=== PATIENT | male | born 1970 | race Caucasian/White ===

== ENCOUNTER 2016-11-12 09:17 | Day surgery (SDC) | payer OTHER ==
[2016-11-11 09:30] VITALS: BMI 27.1
[~2016-11-12 09:17] MED LIST: LACTATED RINGERS 1,000 ML IV SCH
[2016-11-12] MEDS ORDERED: LACTATED RINGERS 1,000 ML IV ONE (09:29)
[2016-11-12] MEDS ORDERED: LIDOCAINE 1% 20 ML VIAL (10MG/ML) FOR IV START INTRADERMA ONE (09:29)
[2016-11-12 09:35] VITALS: RESP 18; TEMP 98
[2016-11-12] MEDS ORDERED: fentaNYL (PF) 50 MCG/ML 2 ML AMP ONE (10:28)
[2016-11-12] MEDS ORDERED: MIDAZOLAM 2 MG/2 ML VIAL ONE (10:28)
[2016-11-12] MEDS ORDERED: BUPIVACAINE (PF) 0.5% 30 ML VIAL ONE (10:28)
[2016-11-12] MEDS ORDERED: TRIAMCINOLONE ACETONIDE 40 MG/ML 1 ML VIAL ONE (10:28)
--- NOTE | 2016-11-12 10:50 | P.PCN ---
Date of Procedure: 11/12/16 Procedure(s) Performed: PREOPERATIVE DIAGNOSIS : 1- Lumbar spondylosis with Facet Arthropathy without myelopathy . 2- Lumber degenerative disc disease POSTOPERATIVE DIAGNOSIS: 1- Lumbar spondylosis with Facet Arthropathy without myelopathy . 2- Lumber degenerative disc disease PROCEDURE: Diagnostic bilateral L3 -4 , L4 -5 , and L5-S1 medial branch block under fluoroscopy ANESTHESIA: Local with 1% lidocaine; IV sedation with Versed 3 mg and Fentanyl 100 mcg. EBL: Minimal COMPLICATION: None. IV FLUIDS: 100 mL of normal saline. PROCEDURE INDICATION: Chronic low back pain secondary to Facet arthropathy unresponsive to conservative treatment. PROCEDURE DESCRIPTION: the patient was seen and identified in the preop holding area , risks and benefits and possible complications of the procedure and alternative were discussed with the patient, and the patient agreed to proceed with the procedure and signed the consent IV was started and vital signs monitored during the procedure and fluoroscopy was used to maximize the benefit and accuracy of the needle placement, and sedation was given to decrease patient anxiety, patient was taken to the procedure room and placed in prone position vital signs monitored in the back prepped with chlorhexidine X3 then under strict sterile technique using a right oblique fluoroscopy ,the junction of the transverse process and the superior articulating process of the right L3- 4 , L4- 5, and L5-S1 vertebra which corresponding to the fluoroscopy image of the eye of the Byron dog on the block side for the medial branches and subsequently , after local infiltration of skin and subcu tissuies with lidocaine 1% one mL at each level ,then 22- gauge Quincke-type needles , 3 needle was used , each one of them placed at the junction of the base of the transverse process and the superior articular process at the appropriate level, and the needle was advanced until the periosteum contacted, needle placement confirmed with AP oblique and lateral view and after appropriate needle placement confirmed, and after negative aspiration for heme and CSF and there was no paresthesia 1-1/2 mL of Marcaine 0.5% mixed with 40 mg Kenalog , then half mL injected at each level after negative aspiration the needle subsequently removed and the same procedure repeated for the left side at left side at L3-4, L4- 5 and L5-S1 levels. At the end of the procedure and the needles removed and a bandage applied after the skin was cleaned the cleaning solution patient taken to recovery room in stable condition and monitors in the recovery room for 20-30 minutes and discharged home in stable condition after discharge criteria met and patient will follow up with the pain clinic in 2-4 weeks
[2016-11-12] MEDS ORDERED: IV FLUID CONTINUATION 1,000 ML IV ONE (10:57)
--- NOTE | 2016-11-12 11:03 | FL ---
EXAMINATION TYPE: FL guided pain mgmt statistic DATE OF EXAM: 11/12/2016 10:53 AM COMPARISON: NONE HISTORY: Back pain Fluoroscopy support supplied to the referring clinician. See dictated report from anesthesia, 8 seco nds fluoroscopy time, four intraoperative C-arm images
[2016-11-12 11:14] VITALS: BP 115/70; PULSE 56
== END 2016-11-12 11:41 | disposition home or self-care (01) ==
LOC: ORPAIN 09:17
PROVIDERS: ATTEND Specialist
DX: G89.29 Other chronic pain (principal); M51.36 Other intervertebral disc degeneration, lumbar region; M47.816 Spondylosis without myelopathy or radiculopathy, lumbar region; M46.96 Unspecified inflammatory spondylopathy, lumbar region; M54.5 Low back pain; Z91.013 Allergy to seafood
CPT/HCPCS: 64493; 64494; 64495; J2250; J3301; J3010

== ENCOUNTER 2016-12-30 08:04 | Day surgery (SDC) | payer OTHER ==
[2016-12-28 14:04] VITALS: BMI 27.8
[2016-12-30 08:18] VITALS: RESP 16; TEMP 97.8
[2016-12-30] MEDS ORDERED: LACTATED RINGERS 1,000 ML IV ONE (08:22)
[2016-12-30] MEDS ORDERED: LACTATED RINGERS 1,000 ML IV SCH (09:00)
[2016-12-30] MEDS ORDERED: BUPIVACAINE (PF) 0.5% 30 ML VIAL ONE (09:07)
[2016-12-30] MEDS ORDERED: TRIAMCINOLONE ACETONIDE 40 MG/ML 1 ML VIAL ONE (09:07)
[2016-12-30] MEDS ORDERED: MIDAZOLAM 2 MG/2 ML VIAL ONE (09:07)
[2016-12-30] MEDS ORDERED: fentaNYL (PF) 50 MCG/ML 2 ML AMP ONE (09:07)
--- NOTE | 2016-12-30 09:44 | P.PCN ---
Date of Procedure: 12/30/16 Surgeon: Michael Gutiérrez Pathology: none sent Condition: stable Disposition: PACU Description of Procedure: PREOPERATIVE DIAGNOSIS: L3-L4, L4-L5, and L5-S1 spondylosis without myelopathy and facet arthropathy. POSTOPERATIVE DIAGNOSIS: L3-L4, L4-L5, and L5-S1 spondylosis without myelopathy and facet arthropathy. PROCEDURE DESCRIPTION: Patient presents for L3, L4 and L5 diagnostic medial branch blocks under fluoroscopic guidance. The procedure is performed using fluoroscopic guidance during needle placement to assure proper position and maximize safety. ANESTHESIA: Local with 1% lidocaine; conscious sedation EBL: Minimal PROCEDURE INDICATION: Patient with lumbar facet arthropathy signs and symptoms, here for diagnostic medial branch block. Pt does not take any blood thinning medications. > 50% relief from first procedure x 1 week. PROCEDURE DESCRIPTION: The patient was seen and identified in the preoperative area. Risks, benefits, complications, and alternatives were discussed with the patient (including but not limited to incomplete pain relief, bleeding, infection, nerve damage, and allergies to medications), the patient agreed to proceed with the procedure and signed the consent after all questions were answered. Patient was taken to the OR and time out was completed to verify proper patient, position, laterality of pain, and allergies. Pt was placed in the prone position and a pillow was placed under the abdomen to reduce lumbar lordosis. The lumbosacral area was prepped and draped in the usual sterile fashion. Using oblique fluoroscopy, the eye of the "Byron dog" of right L4 vertebral body, which corresponds to the path of the medial branch originating from the level above, which is L3 in this case, was identified. Subsequently, a 22-gauge 3.5-inch spinal needle was inserted under fluoroscopic guidance toward the eye of the "Byron dog" of the right L4 vertebral body, corresponding to the junction of the superior articular process and the transverse process of the pedicle of the same level. After needle tip confirmation on lateral view and after negative aspiration for CSF and blood and without paresthesias, 1 mL of a 6 ml solution of 0.5% preservative-free bupivacaine and 40 mg Kenalog was injected. Subsequently the needle was withdrawn intact and the same procedure was repeated for the right L4, right L5, left L3, left L4, and left L5 medial branches which together with right L3 medial branch correspond to the sensory innervation of the bilateral L3-L4, L4-L5, and L5-S1 facet joints. Needle was withdrawn intact after each injection. At the end of the procedure, the skin was cleansed and bandages were applied. COMPLICATIONS: None. DISPOSITION/PLAN: The patient taken to the recovery area after the procedure in a stable condition for observation. Patient was reexamined prior to discharge and there were no issues. Patient was discharged home, accompanied by an adult, after meeting discharged criteria. Discharge instructions were give to the patient by the staff. Patient was specifically instructed not to drive today and to rest for the rest of the day. If the patient has relief from this procedure, he will follow up for lumbar RFA. I did give one prescription for MSContin 30 mg #60 with no refills. and Neurontin 400 mg #90 with two refills.
--- NOTE | 2016-12-30 10:01 | FL ---
Fluoroscopy HISTORY: Pain 10 seconds fluoroscopy time supplied to the referring clinician. 3 intraoperative C-arm images docum ent the procedure. See dictated report from anesthesia.
[2016-12-30 10:04] VITALS: BP 127/84; PULSE 53
[2016-12-30] MEDS ORDERED: IV FLUID CONTINUATION 1,000 ML IV ONE (10:05)
== END 2016-12-30 10:13 | disposition home or self-care (01) ==
LOC: ORPAIN 08:04
PROVIDERS: ATTEND Anesthesiology
DX: G89.29 Other chronic pain (principal); M47.817 Spondylosis without myelopathy or radiculopathy, lumbosacral region; M46.96 Unspecified inflammatory spondylopathy, lumbar region; Z91.013 Allergy to seafood; Z79.891 Long term (current) use of opiate analgesic; Z79.1 Long term (current) use of non-steroidal anti-inflammatories (NSAID); Z79.899 Other long term (current) drug therapy
CPT/HCPCS: 99152; 64493; 64494; 64495; J2250; J3301; J3010

== ENCOUNTER 2017-02-09 06:52 | Day surgery (SDC) | payer OTHER ==
[2017-02-09] MEDS ORDERED: LACTATED RINGERS 1,000 ML IV SCH (07:00)
[2017-02-09 08:04] VITALS: TEMP 98.4
[2017-02-09] MEDS ORDERED: LIDOCAINE 1% 20 ML VIAL (10MG/ML) FOR IV START SQ ONE (08:04)
[2017-02-09] MEDS ORDERED: LACTATED RINGERS 1,000 ML IV ONE (08:12)
[2017-02-09] MEDS ORDERED: BUPIVACAINE (PF) 0.5% 30 ML VIAL ONE (08:18)
[2017-02-09] MEDS ORDERED: TRIAMCINOLONE ACETONIDE 40 MG/ML 1 ML VIAL ONE (08:18)
[2017-02-09] MEDS ORDERED: fentaNYL (PF) 50 MCG/ML 2 ML AMP ONE (08:18)
[2017-02-09] MEDS ORDERED: MIDAZOLAM 2 MG/2 ML VIAL ONE (08:18)
[2017-02-09] MEDS ORDERED: IV FLUID CONTINUATION 775 ML IV ONE (08:51)
--- NOTE | 2017-02-09 08:52 | FL ---
EXAMINATION TYPE: FL guided pain mgmt statistic DATE OF EXAM: 02/09/2017 8:42 AM HISTORY: Flouroscopy time 5 seconds of fluoroscopy provided. IMPRESSION: 1. Fluoroscopy time.
[2017-02-09 09:02] VITALS: RESP 18
[2017-02-09 09:11] VITALS: BP 1117/70; PULSE 69
--- NOTE | 2017-02-09 11:05 | P.PCN ---
Date of Procedure: 02/09/17 Procedure(s) Performed: PREOPERATIVE DIAGNOSIS: 1-Lumbar Spondylosis with Facet Arthropathy without myelopathy. 2- Lumber degenerative disc disease POSTOPERATIVE DIAGNOSIS: 1- Lumbar Spondylosis with Facet Arthropathy without myelopathy. 2- Lumber degenerative disc disease PROCEDURES : Left Radiofrequency thermocoagulation, L3-L4, L4-L5, and L5-S1 medial branch, with fluoroscopic guidance ANESTHESIA: IV sedation with versed 2 mg and fentaneyl 100 mcg and local infiltration with lidocaine 1% 6 ml EBL: Minimal PROCEDURE INDICATION: The patient with low back pain secondary to lumbar facet arthropathy who had more than 50% relief of her pain with previous diagnostic lumbar medial branch block with bupivacaine. PROCEDURE DESCRIPTION / TECHNIQUE: The patient was seen and identified in the preoperative area. Risks, benefits, complications, including but not limited to risk of infection ,bleeding , allergic reactions to the medications and no complete pain releife , and alternatives were discussed with the patient, the patient agreed to proceed with the procedure and signed the consent. IV was started. Vital signs remained stable throughout the procedure. Patient was taken to the OR and time out was completed. The patient was placed in the prone position on the procedure table. The lumber area was prepped and draped in the usual sterile fashion. . Vital signs were closely monitored during the procedure .IV sedation was used during the procedure to decrease patients anxiety. Using AP and then oblique fluoroscopy, the ``eye of the Byron dog corresponding to the connection between the superior and transverse articular processes of left L3, L4, and L5 were identified, marked, and localized with 1% lidocaine. Subsequently, a [id number] radiofrequency cannula with a 10-mm active tip was advanced guided by fluoroscopy to each of the ``eyes of the Byron dog at left L3, L4, and L5. Each site then underwent sensory testing at 50 Hz and 0 to 1 volt and motor testing at 2.5 Hz and 0 to 3 volt with local stimulation, but no radicular symptoms down the legs. Thereafter the left L3-4, L4-5, and L5-S1 sites underwent radiofrequency thermocoagulation at 80 degrees celsius for 90 seconds after injecting 0.5 ml of PF lidocaine 1%. then After the thermocoagulation done , 1 ml of the block solution containing Kenalog 40 mg and 3 ml of marain 0.5% was injected at the left L3-4 , L4-5 , and L5-S1, levels after negative aspiration of CSF and blood and with no paresthesias. Cannulas were retracted while injecting lidocaine 1% until the needle is out. At the end of the procedure, the skin was cleansed and bandages were applied. COMPLICATIONS: No acute complications. DISPOSITION / PLANS: The patient was placed in a supine position and transferred to the recovery area in a stable condition for observation and was discharged from the recovery room after meeting discharge criteria. Home discharge instructions given to the patient by the staff. The patient was reexamined prior to discharge. The patient will schedule a follow up in the clinic in 2-4 weeks.
== END 2017-02-09 09:30 | disposition home or self-care (01) ==
LOC: ORPAIN 06:52
PROVIDERS: ATTEND Specialist
DX: M46.96 Unspecified inflammatory spondylopathy, lumbar region (principal); M51.36 Other intervertebral disc degeneration, lumbar region; M47.816 Spondylosis without myelopathy or radiculopathy, lumbar region; Z88.8 Allergy status to other drugs, medicaments and biological substances
CPT/HCPCS: 64635; 64636 ×2; 99152; J2250; J3301; J3010

== ENCOUNTER 2017-03-22 06:38 | Day surgery (SDC) | payer OTHER ==
[2017-03-21 09:23] VITALS: BMI 61.2
[2017-03-22 07:09] VITALS: RESP 16; TEMP 98.1
[2017-03-22] MEDS ORDERED: LACTATED RINGERS 1,000 ML IV ONE (07:12)
[2017-03-22] MEDS ORDERED: LIDOCAINE 1% 20 ML VIAL (10MG/ML) FOR IV START INTRADERMA ONE (07:13)
[2017-03-22] MEDS ORDERED: LACTATED RINGERS 1,000 ML IV SCH (07:30)
[2017-03-22] MEDS ORDERED: MIDAZOLAM 2 MG/2 ML VIAL ONE (07:43)
[2017-03-22] MEDS ORDERED: TRIAMCINOLONE ACETONIDE 40 MG/ML 1 ML VIAL ONE (07:43)
[2017-03-22] MEDS ORDERED: fentaNYL (PF) 50 MCG/ML 2 ML AMP ONE (07:43)
[2017-03-22] MEDS ORDERED: IV FLUID CONTINUATION 1,000 ML IV ONE (08:06)
[2017-03-22 08:33] VITALS: BP 113/79; PULSE 62
--- NOTE | 2017-03-22 08:35 | FL ---
EXAMINATION TYPE: FL guided pain mgmt statistic DATE OF EXAM: 03/22/2017 8:08 AM HISTORY: Flouroscopy time 19 seconds of fluoroscopy provided. IMPRESSION: 1. Fluoroscopy time.
--- NOTE | 2017-03-22 08:51 | P.PCN ---
Date of Procedure: 03/22/17 Preoperative Diagnosis: Postoperative Diagnosis: Procedure(s) Performed: Implants: Surgeon: Michael Gutiérrez Pathology: none sent Condition: stable Disposition: PACU Indications for Procedure: Operative Findings: Description of Procedure: PREOPERATIVE DIAGNOSIS: Lumbar spondylosis without myelopathy and facet arthropathy POSTOPERATIVE DIAGNOSIS: Lumbar spondylosis without myelopathy and facet arthropathy PROCEDURES: Right Radiofrequency thermocoagulation, L3, L4, and L5 medial branch , with fluoroscopic guidance. ANESTHESIA: 1% lidocaine plain; Conscious sedation with versed/fentanyl EBL: Minimal PROCEDURE INDICATION: The patient with low back pain secondary to lumbar arthropathy who had more than 50% relief of pain with previous diagnostic lumbar medial branch block with bupivacaine. Patient presents for RFA today; no use of blood thinners. Patient has already had good relief with left lumbar RFA. PROCEDURE DESCRIPTION / TECHNIQUE: The patient was seen and identified in the preoperative area. Risks, benefits, complications, and alternatives were discussed with the patient (including but not limited to incomplete pain relief , bleeding, infection, nerve damage, and allergies to medications), the patient agreed to proceed with the procedure and signed the consent after all questions were answered. Patient was taken to the OR and time out was completed to verify proper patient , position, laterality of pain, and allergies. Pt was placed in the prone position. IV was started. Vital signs remained stable throughout the procedure. A pillow was placed under the patients chest to decrease lordosis. The lumbosacral area was prepped and draped in the usual sterile fashion. Vital signs were closely monitored during the procedure. Conscious sedation was used during the procedure to decrease patients anxiety. Using AP and then oblique fluoroscopy, the eye of the Byron dog corresponding to the connection between the superior and transverse articular processes of right L4, L5 and top of the sacrum were identified, marked, and localized with 1% lidocaine. Subsequently, a 18 gauge, 100-mm radiofrequency cannula with a 10-mm active tip was advanced guided by fluoroscopy to each of the eyes of the Byron dog at right L3, L4, and L5 medial branches. Each site then underwent sensory testing at 50 Hz and 0 to 1 volt and motor testing at 2 Hz and 0 to 3 volt with local stimulation, but no radicular symptoms down the legs. Thereafter the right L3, L4, and L5 medial branch sites underwent radiofrequency thermocoagulation at 80 degrees Celsius for 90 seconds after injecting 0.5 ml of PF lidocaine 1%. After thermocoagulation, 1 ml of the block solution containing Kenalog 40 mg and 2 mL of preservative-free normal saline was injected at the right L3, L4, and L5 medial branch levels after negative aspiration of CSF and blood and with no paresthesias. Cannulas were retracted while injecting lidocaine 1% until the needles were removed. At the end of the procedure, the skin was cleansed and bandages were applied. COMPLICATIONS: No acute complications. DISPOSITION / PLANS: The patient was placed in a supine position and transferred to the recovery area in a stable condition for observation and was discharged from the recovery room after meeting discharge criteria. Home discharge instructions given to the patient by the staff. The patient was reexamined prior to discharge. The patient will schedule a follow up in the clinic in 2-4 weeks as both RFAs of lumbar spine have been completed.
== END 2017-03-22 08:45 | disposition home or self-care (01) ==
LOC: ORPAIN 06:38
PROVIDERS: ATTEND Anesthesiology
DX: G89.29 Other chronic pain (principal); M54.5 Low back pain; M47.816 Spondylosis without myelopathy or radiculopathy, lumbar region; M46.96 Unspecified inflammatory spondylopathy, lumbar region; Z79.1 Long term (current) use of non-steroidal anti-inflammatories (NSAID); Z79.891 Long term (current) use of opiate analgesic; Z79.899 Other long term (current) drug therapy; Z91.013 Allergy to seafood
CPT/HCPCS: 64635; 64636 ×2; 99152; J2250; J3301; J3010

== ENCOUNTER → 2017-05-17 | Outpatient (CLI) | payer OTHER ==
[2017-05-17 12:45] VITALS: BP 134/88; PULSE 81; RESP 16; TEMP 97.4
--- NOTE | 2017-05-17 13:31 | P.PN ---
Progress Note - Text Patient returns for followup for chronic neck and back pain with radiation to RLE. Patient recently underwent bilateral lumbar RFA, which provided some relief for 1-2 weeks' interval. Patient continues on MSContin, Neurontin, and Mobic medications for pain with good relief. Patient denies adverse drug effects from medications. Today, pt denies new-onset weakness, bowel/bladder incontinence, or any other signs or symptoms of cauda equina syndrome. There are no signs of acute intoxication, and no indications of medication diversion or overuse. In addition to above, 13-point review of systems is also negative for chest pain , shortness of breath, changes in vision, changes in hearing, new onset weakness , abdominal pain, diarrhea, extreme fatigue, malaise, fever, skin changes, homicidal or suicidal ideation, or bowel or bladder incontinence. Vital Signs: Reviewed in EMR Gen: WDWN, AAOx3, NAD HEENT: NCAT, EOMI, hearing grossly normal Pulm: resp unlabored Abd: soft, NT, ND Neck: supple, trachea midline ROM in flexion lumbar spine: reduced ROM in extension lumbar spine: reduced Lumbar paravertebral tenderness: + Facet loading: + bilateral SI joint tenderness: neg Terrell's test: neg Straight leg raise: +RLE at 10 degrees Neuro: CN II-XII grossly intact, muscle strength lower extremities PRESERVED Imaging: Reviewed in EMR Assessment: 1. lumbar spondylosis with myelopathy 2. lumbar radic 3. chronic pain syndrome Plan: 1. Explanation: Opioid and psychological risk scores were reviewed. Diagnoses , prognoses, and multiple treatment options including but not limited to physical therapy, interventional therapies, adjuvant medical therapies, narcotic medication therapies, and surgery were discussed with the patient and all questions were answered to the patient's satisfaction. 2. Opioid agreement: Patient has previously signed narcotic agreement, and was orally counseled to not overuse, abuse, divert, or cell medications, and to take them as prescribed by only 1 healthcare provider. The patient was also counseled to store opioid medications in a safe and preferably locked location. Patient was also counseled against driving or operating heavy equipment while using narcotic medications and also to not use alcohol or any illicit or recreational drugs. The patient verbalized understanding that lack of compliance with any of the above and likely result in failure to renew narcotic prescriptions, possible discharge from the clinic, and possible legal ramifications thereafter if indicated. 3. Counseling: The patient was counseled extensively on SMOKING CESSATION, BODY MASS INDEX, EXERCISE. Specifically, the patient was instructed regarding the importance of smoking cessation, weight control, and exercise in the context of both chronic pain and overall health. 4. Procedures: LESI x 2 5. Consultations: Psychologist for anxiety problems 6. Investigations: None 7. Medications: MSContin 30 mg #60 with no refills, gabapentin and meloxicam with two refills 8. Disposition: f/u for procedure as scheduled; patient to see psychologist to discuss anxiety as it is likely a significant contributor to his pain PQRS measures: 1-Patient's medications are documented in the chart. 2-Tobacco use is negative 3-Patient has not had a pneumococcal vaccine. 4-Advanced care planning discussed, patient unable to give. 5-Opioid contract signed with the patient. 6-Pain positive, follow-up visit or procedure scheduled 7-Patient's blood pressure measured and documented, and patient will follow up with the primary care due to hypertension. 8-Patient's weight was measured, and body mass index ABOVE the normal limits, and counseling was done. Patient instructed to follow up with PCP. 9-Patient WAS NOT identified as an unhealthy alcohol user.
== END | disposition home or self-care (01) ==
LOC: PNWHC3 12:14
PROVIDERS: ATTEND Anesthesiology
DX: M47.16 Other spondylosis with myelopathy, lumbar region (principal); G89.4 Chronic pain syndrome
CPT/HCPCS: 99211

== ENCOUNTER 2017-06-15 09:15 | Day surgery (SDC) | payer OTHER ==
[2017-06-14 08:30] VITALS: BMI 27.1
[2017-06-15 09:29] VITALS: RESP 18; TEMP 97.7
[2017-06-15] MEDS ORDERED: LIDOCAINE 1% 20 ML VIAL (10MG/ML) FOR IV START INTRADERMA ONE (09:45)
--- NOTE | 2017-06-15 10:18 | P.PCN ---
Date of Procedure: 06/15/17 Preoperative Diagnosis: Postoperative Diagnosis: Procedure(s) Performed: Implants: Surgeon: Michael Gutiérrez Pathology: none sent Condition: stable Disposition: PACU Indications for Procedure: Operative Findings: Description of Procedure: PREOPERATIVE DIAGNOSIS: 1-Lumbar radiculitis. POSTOPERATIVE DIAGNOSIS: 1-Lumbar radiculitis. PROCEDURE 1. Lumbar epidural steroid injection under fluoroscopic guidance at the L3-L4 level. 2. Lumbar epidurogram. ANESTHESIA: Local with 1% lidocaine; IV sedation with Versed/fentanyl. EBL: Minimal PROCEDURE INDICATION: The patient with low back pain and radiculitis symptoms unresponsive to conservative treatment. Fluoroscopy was used to optimize visualization of the needle placement and to maximize safety. No use of blood thinners. PROCEDURE DESCRIPTION / TECHNIQUE: The patient was seen and identified in the preoperative area. Risks, benefits, complications, and alternatives were discussed with the patient, including but not limited to bleeding, infection, nerve damage, allergic reactions to medications, and incomplete pain relief. The patient agreed to proceed with the procedure and signed the consent after all questions were answered. IV was started, and vital signs were stable. Patient was taken to the OR and time out was completed to confirm patient position, procedure, laterality of pain, and allergies. The patient was placed in the prone position on procedure table and a pillow was placed under the abdomen to reduce lumbar lordosis. The lumbosacral area was prepped and draped in the usual sterile fashion. Critical pause was taken. Vital signs were closely monitored during the procedure. Conscious sedation was used during the procedure to decrease patients anxiety. Using anterior-posterior fluoroscopy, the L3-L4 interlaminar space was identified and the skin over this site was marked and then infiltrated with 1% lidocaine subcutaneously. Subsequently, a 20-gauge 3.5-inch Tuohy epidural needle was inserted and advanced toward the epidural space using the Loss of resistance technique and guided by AP and lateral fluoroscopy. The correct needle position in the epidural space was verified with the injection of 2 mL of the water soluble contrast dye Omnipaque 300 contrast and observing an excellent epidurogram with the epidural spread of the dye, after negative aspiration for blood and CSF and in the absence of paresthesias. Again after negative aspiration, a 8 ml mixture containing 20 mg of PF Decadron and 5 ml of preservative free Normal Saline, and 2 ml of preservative free lidocaine 1% solution was injected and a washout of epidurogram was seen. Needle was withdrawn intact, skin was cleansed, and bandages were applied. COMPLICATIONS: None COMMENTS: DISPOSITION / PLANS: The patient was placed in a supine position and transferred to the recovery area in a stable condition for observation. There was no evidence of lower extremity motor or sensory deficit after the procedure. Patient was discharged from the recovery room after meeting discharge criteria. Home discharge instructions were given to the patient by the staff. The patient was reexamined prior to discharge and there were no issues. The patient will schedule a repeat LESI in 4-6 weeks.
[2017-06-15] MEDS ORDERED: IV FLUID CONTINUATION 1,000 ML IV ONE (10:22)
[2017-06-15 10:28] VITALS: PULSE 60
[2017-06-15 10:38] VITALS: BP 102/65
--- NOTE | 2017-06-15 11:18 | FL ---
Fluoroscopy HISTORY: Pain 6 seconds fluoroscopy time supplied to the referring clinician. 3 intraoperative C-arm images docume nt the procedure. See dictated report from anesthesia.
== END 2017-06-15 10:54 | disposition home or self-care (01) ==
LOC: ORPAIN 09:15
PROVIDERS: ATTEND Anesthesiology
DX: G89.4 Chronic pain syndrome (principal); M54.16 Radiculopathy, lumbar region; Z79.1 Long term (current) use of non-steroidal anti-inflammatories (NSAID); Z79.891 Long term (current) use of opiate analgesic; Z79.899 Other long term (current) drug therapy; M47.16 Other spondylosis with myelopathy, lumbar region; Z91.013 Allergy to seafood
CPT/HCPCS: 62323; J2250; J1100; Q9965; J3010; 99152

== ENCOUNTER 2017-07-11 07:59 | Day surgery (SDC) | payer OTHER ==
[2017-07-06 10:49] VITALS: BMI 26.4
[2017-07-11] MEDS ORDERED: LACTATED RINGERS 1,000 ML IV SCH (08:11)
[2017-07-11 08:24] VITALS: RESP 16; TEMP 98.1
[2017-07-11] MEDS ORDERED: LIDOCAINE 1% 20 ML VIAL (10MG/ML) FOR IV START INTRADERMA ONE (08:27)
--- NOTE | 2017-07-11 09:05 | P.PCN ---
Date of Procedure: 07/11/17 Preoperative Diagnosis: Postoperative Diagnosis: Procedure(s) Performed: Implants: Surgeon: Michael Gutiérrez Pathology: none sent Condition: stable Disposition: PACU Indications for Procedure: Operative Findings: Description of Procedure: PREOPERATIVE DIAGNOSIS: 1-Lumbar radiculitis. POSTOPERATIVE DIAGNOSIS: 1-Lumbar radiculitis. PROCEDURE 1. Lumbar epidural steroid injection under fluoroscopic guidance at the L4-L5 level. 2. Lumbar epidurogram. ANESTHESIA: Local with 1% lidocaine; IV sedation with Versed/fentanyl. EBL: Minimal PROCEDURE INDICATION: The patient with low back pain and radiculitis symptoms unresponsive to conservative treatment. Fluoroscopy was used to optimize visualization of the needle placement and to maximize safety. No use of blood thinners. Three weeks' relief from LESI #1. PROCEDURE DESCRIPTION / TECHNIQUE: The patient was seen and identified in the preoperative area. Risks, benefits, complications, and alternatives were discussed with the patient, including but not limited to bleeding, infection, nerve damage, allergic reactions to medications, and incomplete pain relief. The patient agreed to proceed with the procedure and signed the consent after all questions were answered. IV was started, and vital signs were stable. Patient was taken to the OR and time out was completed to confirm patient position, procedure, laterality of pain, and allergies. The patient was placed in the prone position on procedure table and a pillow was placed under the abdomen to reduce lumbar lordosis. The lumbosacral area was prepped and draped in the usual sterile fashion. Critical pause was taken. Vital signs were closely monitored during the procedure. Conscious sedation was used during the procedure to decrease patients anxiety. Using anterior-posterior fluoroscopy, the L4-L5 interlaminar space was identified and the skin over this site was marked and then infiltrated with 1% lidocaine subcutaneously. Subsequently, a 20-gauge 3.5-inch Tuohy epidural needle was inserted and advanced toward the epidural space using the Loss of resistance technique and guided by AP and lateral fluoroscopy. The correct needle position in the epidural space was verified with the injection of 2 mL of the water soluble contrast dye Omnipaque 300 contrast and observing an excellent epidurogram with the epidural spread of the dye, after negative aspiration for blood and CSF and in the absence of paresthesias. Again after negative aspiration, a 8 ml mixture containing 20 mg of PF Decadron and 5 ml of preservative free Normal Saline, and 2 ml of preservative free lidocaine 1% solution was injected and a washout of epidurogram was seen. Needle was withdrawn intact, skin was cleansed, and bandages were applied. COMPLICATIONS: None COMMENTS: DISPOSITION / PLANS: The patient was placed in a supine position and transferred to the recovery area in a stable condition for observation. There was no evidence of lower extremity motor or sensory deficit after the procedure. Patient was discharged from the recovery room after meeting discharge criteria. Home discharge instructions were given to the patient by the staff. The patient was reexamined prior to discharge and there were no issues. The patient will schedule a follow-up in the clinic in 4-6 weeks.
[2017-07-11] MEDS ORDERED: IV FLUID CONTINUATION 1,000 ML IV ONE (09:12)
--- NOTE | 2017-07-11 09:16 | FL ---
EXAMINATION TYPE: FL guided pain mgmt statistic DATE OF EXAM: 07/11/2017 COMPARISON: NONE HISTORY: Back pain TECHNIQUE: Fluoroscopy. FINDINGS/IMPRESSION: Fluoroscopic guidance was provided during procedure performed by Dr. Marla humphries l of 5 seconds of fluoroscopic time was utilized during the procedure and 3 spot images was acquired.
[2017-07-11 09:32] VITALS: BP 119/77; PULSE 69
== END 2017-07-11 09:44 | disposition home or self-care (01) ==
LOC: ORPAIN 07:59
PROVIDERS: ATTEND Anesthesiology
DX: M54.16 Radiculopathy, lumbar region (principal); Z91.013 Allergy to seafood
CPT/HCPCS: 62323; J1100; Q9965

== ENCOUNTER → 2017-08-08 | Outpatient (CLI) | payer OTHER ==
[2017-08-08 13:30] VITALS: BP 133/88; PULSE 82; RESP 18; TEMP 98.5
--- NOTE | 2017-08-08 14:04 | P.PN ---
Progress Note - Text Progress Note Date: 08/08/17 This is a 47-year-old male with history of lower back pain with radiation to the lower extremities to the knee level. The patient was diagnosed with lumbar degenerative disc disease and has been getting MS Contin 30 mg twice a day and also he had RFA on the medial branches and lately lumbar epidural steroid injection gave him 3-4 weeks of pain relief. 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 I will change his morphine to immediate release 50 mg in the morning and I will contact around 30 mg as MS Contin in the evening and then I will schedule him to have lumbar epidural injection for the third and last time in this series. The patient also takes Neurontin and Mobic. The patient does not show any signs of oversedation or any suicidal ideation also does not show any signs of opioid abuse. I will see the patient next month for reevaluation.
== END ==
LOC: PNWHC3 13:16
PROVIDERS: ATTEND Anesthesiology
DX: M51.36 Other intervertebral disc degeneration, lumbar region (principal); Z79.891 Long term (current) use of opiate analgesic
CPT/HCPCS: 99211

== ENCOUNTER 2017-09-05 08:54 | Day surgery (SDC) | payer OTHER ==
[2017-09-02 08:44] VITALS: BMI 26.4
[2017-09-05 09:04] VITALS: RESP 16; TEMP 97.6
[2017-09-05] MEDS ORDERED: LIDOCAINE 1% 20 ML VIAL (10MG/ML) FOR IV START INTRADERMA ONE (09:06)
--- NOTE | 2017-09-05 10:38 | P.PCN ---
Date of Procedure: 09/05/17 Procedure(s) Performed: PREOPERATIVE DIAGNOSIS: 1- Lumbar Degenerative Disc Diseases 2-Lumbar spondylosis with Facet arthropathy without myelopathy POSTOPERATIVE DIAGNOSIS: 1-Lumber Degenerative Disc Diseases 2-Lumbar spondylosis with Facet arthropathy without myelopathy PROCEDURE 1. Lumbar epidural steroid injection under fluoroscopic guidance at the L4-5 level. 2. Lumbar epidurogram. ANESTHESIA: Local with 1% lidocaine 3 ml and IV sedation with Versed 2 mg , and fentanyle 100 Mcg EBL: Minimal PROCEDURE INDICATION: The patient with low back pain , unresponsive to conservative treatment. Fluoroscopy was used to optimize visualization of the needle placement and to maximize safety. PROCEDURE DESCRIPTION / TECHNIQUE: The patient was seen and identified in the preoperative area. Risks, benefits , complications including but not limited to infections ,bleeding ,allergic reaction to the medications ,nerve damage and not complete pain releife , and alternatives were discussed with the patient. The patient agreed to proceed with the procedure and signed the consent. IV was started, and vital signs were stable. Patient was taken to the OR and time out was completed. The patient was placed in the prone position on procedure table and a pillow was placed under the abdomen to reduce lumbar lordosis. The lumbosacral area was prepped and draped in the usual sterile fashion.ere closely monitored during the procedure. Conscious sedation was used during the procedure to decrease patients anxiety. Vital signs was monitered during the entire procedure. Using anterior-posterior fluoroscopy, the L4-5 interlaminar space was identified and the skin over this site was marked and then infiltrated with 1% lidocaine subcutaneously. Subsequently, a 20-gauge Tuohy epidural needle was inserted and advanced toward the epidural space using the ``Loss of resistance technique and guided by AP and lateral fluoroscopy. The correct needle position in the epidural space was verified with the injection of 2 mL of the water soluble contrast dye Omnipaque 180 contrast and observing an excellent epidurogram with the epidural spread of the dye, after negative aspiration for blood and CSF and in the absence of paresthesias. Again after negative aspiration, a 6 ml mixture containing 20 mg of Dexamethasone and 2 ml of preservative free Normal Saline, and 2 ml of preservative free lidocaine 1% solution was injected and a washout of epidurogram was seen. Needle was withdrawn intact, skin was cleansed, and bandages were applied. COMPLICATIONS: None DISPOSITION / PLANS: The patient was placed in a supine position and transferred to the recovery area in a stable condition for observation. There was no evidence of lower extremity motor or sensory deficit after the procedure. Patient was discharged from the recovery room after meeting discharge criteria. Home discharge instructions were given to the patient by the staff. The patient was reexamined prior to discharge. The patient will schedule a follow up in the clinic in 2-4 weeks. she'll be given prescription refills for MS Contin 30 mg twice a day ( he was decreased to 30 mg in AM and 15 mg every PM ,he reported that his pain increased significantly since we changed his pain medication for this reason I will put him back on MS Contin 30 mg twice a day , he will continue to use Mobic 7.5 mg BID ,and Neurontin 400 mg every 8 hours.
[2017-09-05 11:05] VITALS: BP 108/78; PULSE 63
[2017-09-05] MEDS ORDERED: IV FLUID CONTINUATION 1,000 ML IV ONE (11:14)
--- NOTE | 2017-09-05 13:00 | FL ---
Fluoroscopy HISTORY: Pain 2 seconds fluoroscopy time supplied to the referring clinician. 1 intraoperative C-arm image documen ts the procedure. See dictated report from anesthesia.
== END 2017-09-05 11:33 | disposition home or self-care (01) ==
LOC: ORPAIN 08:54
PROVIDERS: ATTEND Specialist
DX: M47.816 Spondylosis without myelopathy or radiculopathy, lumbar region (principal); M46.96 Unspecified inflammatory spondylopathy, lumbar region; M51.36 Other intervertebral disc degeneration, lumbar region; Z91.013 Allergy to seafood
CPT/HCPCS: 62323; J2250; J1100; Q9965; J3010; 99152

== ENCOUNTER → 2017-11-01 | Outpatient (CLI) | payer OTHER ==
--- NOTE | 2017-11-01 12:32 | P.PN ---
Subjective Progress Note Date: 11/01/17 This is follow-up visit for this patient with a history of severe and chronic low back pain secondary to lumbar degenerative disc diseases , lumbar spondylosis with facet arthropathy, we have don interventional pain management injection, lumbar epidural steroid injections, also we have done radiofrequency ablation of the medial branch lumbar area Patients currently on 1-MS contin 30 mg twice a day 2-Neurontin 400 mg 3 times a day 3- mobic 7.5 mg twice Patient denies any side effects of the medication, denies excessive drowsiness or sleepiness, denies suicidal ideation, and reports that the current pain medication is helping To control the pain , and improve activity of daily living Patient denies any motor or sensory deficit , patient denies any fever or night sweats, denies any change in the bowel movements or urination Physical Examinations : 1-Constitutiona : Cooperative , not in acute distress . 2-HEENT : nech ; supple , no Lymphadenopathy , no Thyromegaly , normal thyroid size . eyes : no ptosis , no icterus, no photophobia . ENT : normal of hearing , normal oropharynx , no Thrush . 3- Respiratory : Chest clear to auscultations Bilaterally , no wheezing , no Rhonchi . 4- Cardiovascular : regular rate and rhythem , S1 , S2 , no S3 , no S4. 5- Gastrointestinal : abdomen soft no tenderness , bowel sounds positive all four quadrents , no organomegally . 6- Genitourinary : Defferred . 7- neurologic : Cranial nerve II to XII intact , no focal neurological deffecit . 8-psychatric : alert , oriented X 3 , appropriate affect , intact judgment and insight . 9-Lymphatic : no Lymphadenopathy . 10- musculoskeltal : exams of the Lumber spine = motor strength lower extremities ,thigh and legs .5/5 deep tendon reflexes : normal Knee Jerk , normal ankle Jerk . lumber facet Loading Test positive strait leg raising test positive at 30 degree , RT ,LT , Fabere test positive RT and positive LT . Range of motion: Range of motion in flexion of the lumbar spine 30 degrees Range of motion range of motion of extension of the lumbar spine 10 Assessment and plan = Chronic low back pain secondary to lumbar degenerative disc disease , lumbar spondylosis with facet arthropathy without myelopathy , chronic and current use of high-risk medication (Opioids). The patient was counseled about risk of opioid use, psychological risk associated with opioids and was orally counseled to not overuse , divert,or sell dictations to take medications as prescribed only , and to restore medication in safe location , and the patient counseled against driving while using narcotic medications, and also not to use alcohol or any illicit recreational drugs, the patient's verbalized understanding that the lack of compliance will result in failure to renew narcotic prescription and possible discharge from the clinic - diagnoses, prognosis, and treatment options including but not limited to physical therapy, surgical interventions, interventional therapies , and medication management including narcotics and adjuvant medication were discussed with the patient and all the questions answered prescription refill for MS Contin 30 mg twice a day dispense 60 with 1 refill and Neurontin 400 mg 3 times a day dispense 90 with one refill and Mobic 7.5 twice a day and dispense 60 with one refill patient will follow up in the pain clinic in 2 months and he will be scheduled to have lumbar epidural steroid injections Objective - Vital Signs Vital signs: Vital Signs Temp Pulse 90 11/01/17 12:08 Resp 16 11/01/17 12:08 BP 139/92 11/01/17 12:08 Pulse Ox 93 L 11/01/17 12:08 Intake & Output 10/31/17 11/01/17 11/01/17 18:59 06:59 18:59 Weight 90.718 kg
[2017-11-02 23:03] VITALS: BP 139/92; PULSE 90; RESP 16
== END | disposition home or self-care (01) ==
LOC: PNWHC3 11:58
PROVIDERS: ATTEND Specialist
DX: M51.36 Other intervertebral disc degeneration, lumbar region (principal); M47.816 Spondylosis without myelopathy or radiculopathy, lumbar region; M46.86 Other specified inflammatory spondylopathies, lumbar region; Z79.891 Long term (current) use of opiate analgesic; Z79.899 Other long term (current) drug therapy; Z79.1 Long term (current) use of non-steroidal anti-inflammatories (NSAID); Z79.52 Long term (current) use of systemic steroids
CPT/HCPCS: 99211

== ENCOUNTER 2017-12-13 08:53 | Day surgery (SDC) | payer OTHER ==
[2017-12-06 10:57] VITALS: BMI 27.1
[2017-12-13 09:14] VITALS: RESP 18; TEMP 97.3
[2017-12-13] MEDS ORDERED: LACTATED RINGERS 1,000 ML IV SCH (09:15)
[2017-12-13] MEDS ORDERED: LIDOCAINE 1% 20 ML VIAL (10MG/ML) FOR IV START INTRADERMA ONE (09:26)
--- NOTE | 2017-12-13 10:22 | P.PCN ---
Date of Procedure: 12/13/17 Surgeon: Michael Gutiérrez Pathology: none sent Condition: stable Disposition: PACU Description of Procedure: PREOPERATIVE DIAGNOSIS: 1-Lumbar radiculitis. POSTOPERATIVE DIAGNOSIS: 1-Lumbar radiculitis. PROCEDURE 1. Lumbar epidural steroid injection under fluoroscopic guidance at the L4-L5 level. 2. Lumbar epidurogram. ANESTHESIA: Local with 1% lidocaine; IV sedation with Versed/fentanyl. EBL: Minimal PROCEDURE INDICATION: The patient with low back pain and radiculitis symptoms unresponsive to conservative treatment. Fluoroscopy was used to optimize visualization of the needle placement and to maximize safety. No use of blood thinners. Excellent relief from previous LESIs. PROCEDURE DESCRIPTION / TECHNIQUE: The patient was seen and identified in the preoperative area. Risks, benefits, complications, and alternatives were discussed with the patient, including but not limited to bleeding, infection, nerve damage, allergic reactions to medications, and incomplete pain relief. The patient agreed to proceed with the procedure and signed the consent after all questions were answered. IV was started, and vital signs were stable. Patient was taken to the OR and time out was completed to confirm patient position, procedure, laterality of pain, and allergies. The patient was placed in the prone position on procedure table and a pillow was placed under the abdomen to reduce lumbar lordosis. The lumbosacral area was prepped and draped in the usual sterile fashion. Critical pause was taken. Vital signs were closely monitored during the procedure. Conscious sedation was used during the procedure to decrease patients anxiety. Using anterior-posterior fluoroscopy, the L4-L5 interlaminar space was identified and the skin over this site was marked and then infiltrated with 1% lidocaine subcutaneously. Subsequently, a 20-gauge 3.5-inch Tuohy epidural needle was inserted and advanced toward the epidural space using the Loss of resistance technique and guided by AP and lateral fluoroscopy. The correct needle position in the epidural space was verified with the injection of 2 mL of the water soluble contrast dye Omnipaque 300 contrast and observing an excellent epidurogram with the epidural spread of the dye, after negative aspiration for blood and CSF and in the absence of paresthesias. Again after negative aspiration, a 6 ml mixture containing 80 mg of Depo Medrol and 2 ml of preservative free Normal Saline, and 2 ml of preservative free lidocaine 1% solution was injected and a washout of epidurogram was seen. Needle was withdrawn intact, skin was cleansed, and bandages were applied. COMPLICATIONS: None COMMENTS: DISPOSITION / PLANS: The patient was placed in a supine position and transferred to the recovery area in a stable condition for observation. There was no evidence of lower extremity motor or sensory deficit after the procedure. Patient was discharged from the recovery room after meeting discharge criteria. Home discharge instructions were given to the patient by the staff. The patient was reexamined prior to discharge and there were no issues. The patient will schedule a follow-up in the clinic in 4-6 weeks.
[2017-12-13] MEDS ORDERED: IV FLUID CONTINUATION 1,000 ML IV ONE (10:28)
[2017-12-13 10:47] VITALS: BP 108/70; PULSE 60
--- NOTE | 2017-12-13 12:08 | FL ---
Fluoroscopy HISTORY: Pain 10 seconds fluoroscopy time supplied to the referring clinician. 3 intraoperative C-arm images docum ent the procedure. See dictated report from anesthesia.
== END 2017-12-13 10:58 | disposition home or self-care (01) ==
LOC: ORPAIN 08:53
PROVIDERS: ATTEND Anesthesiology
DX: G89.29 Other chronic pain (principal); M54.16 Radiculopathy, lumbar region; F41.9 Anxiety disorder, unspecified; Z91.041 Radiographic dye allergy status; Z91.013 Allergy to seafood; J44.9 Chronic obstructive pulmonary disease, unspecified
CPT/HCPCS: 62323; J2250; J1030; Q9965; J3010; 99152

== ENCOUNTER 2018-01-05 06:01 | Day surgery (SDC) | payer OTHER ==
[2018-01-04 09:38] VITALS: BMI 24.4
[2018-01-05 06:50] VITALS: RESP 16; TEMP 98.5
[2018-01-05] MEDS ORDERED: LIDOCAINE 1% 20 ML VIAL (10MG/ML) FOR IV START INTRADERMA ONE (06:50)
[2018-01-05] MEDS ORDERED: IV FLUID CONTINUATION 1,000 ML IV ONE (07:23)
--- NOTE | 2018-01-05 07:28 | P.PCN ---
Date of Procedure: 01/05/18 Surgeon: Harrison Hicks Description of Procedure: PREOPERATIVE DIAGNOSIS: 1-Lumbar radiculopathy 2- Lumber Degenerative Disc Diseases. POSTOPERATIVE DIAGNOSIS: 1-Lumbar radiculopathy. 2-Lumber Degenerative Disc Diseases PROCEDURE 1. Lumbar epidural steroid injection under fluoroscopic guidance at the L5-S1 level. 2. Lumbar epidurogram. ANESTHESIA: Local with 1% lidocaine; IV sedation with Versed --2-mg ,and fentanyl 100 mcg EBL: Minimal PROCEDURE INDICATION: The patient with low back pain and radiculitis symptoms unresponsive to conservative treatment. Fluoroscopy was used to optimize visualization of the needle placement and to maximize safety. PROCEDURE DESCRIPTION / TECHNIQUE: The patient was seen and identified in the preoperative area. Risks, benefits , complications including but not limited to infections ,bleeding ,allergic reaction to the medications ,nerve damage and not complete pain relief , and alternatives were discussed with the patient. The patient agreed to proceed with the procedure and signed the consent. IV was started, and vital signs were stable. Patient was taken to the OR and time out was completed. The patient was placed in the prone position on procedure table and a pillow was placed under the abdomen to reduce lumbar lordosis. The lumbosacral area was prepped and draped in the usual sterile fashion with Chloraprep 3.Patient was closely monitored during the procedure. Conscious sedation was used during the procedure to decrease patients anxiety. Vital signs were monitered during the entire procedure. Using anterior-posterior fluoroscopy, the L4-5 interlaminar space was identified and the skin over this site was marked and then infiltrated with 1% lidocaine subcutaneously. Subsequently, a 20-gauge Tuohy epidural needle was inserted and advanced toward the epidural space using the Loss of resistance to air technique and guided by AP and lateral fluoroscopy in the left paramedian approach position. The correct needle position in the epidural space was verified with the injection of 1 mL of the water soluble contrast dye Omnipaque 180 contrast and observing an excellent epidurogram with the epidural spread of the dye, after negative aspiration for blood and CSF and in the absence of paresthesias. Again after negative aspiration, a 8 ml mixture containing 40 mg of Kenalog and 5 ml of preservative free Normal Saline, and 2 ml of preservative free Marcaine 0.25% solution was injected and a washout of epidurogram was seen. Needle was withdrawn intact, skin was cleansed, and bandages were applied. patient tolerated procedure well and was transferred to PACU in stable condition. COMPLICATIONS: None
[2018-01-05 07:43] VITALS: BP 131/70; PULSE 65
--- NOTE | 2018-01-05 08:38 | FL ---
Fluoroscopy INDICATION: Pain FINDINGS: Fluoroscopy time: 8 seconds. Images obtained: 2. IMPRESSIONS: 1. Documentation of fluoroscopy.
== END 2018-01-05 07:56 | disposition home or self-care (01) ==
LOC: ORPAIN 06:01
PROVIDERS: ATTEND Anesthesiology
DX: M51.16 Intervertebral disc disorders with radiculopathy, lumbar region (principal); J44.9 Chronic obstructive pulmonary disease, unspecified; Z91.013 Allergy to seafood
CPT/HCPCS: 62323; J2250; J3301; Q9965; J3010

== ENCOUNTER → 2018-02-01 | Outpatient (CLI) | payer OTHER | END | disposition home or self-care (01) | LOC: PNWHC3 14:30 | PROVIDERS: ATTEND Anesthesiology | DX: Z53.9 Procedure and treatment not carried out, unspecified reason (principal) ==

== ENCOUNTER → 2018-02-22 | Outpatient (CLI) | payer OTHER ==
[2018-02-22 14:25] VITALS: BP 127/90; PULSE 94; RESP 18
--- NOTE | 2018-02-22 14:58 | P.PN ---
Progress Note - Text Progress Note Date: 02/22/18 Patient returns for followup for chronic neck and back pain with radiation to LLE with shooting pain down to the ankles. Patient recently underwent LESI x 2 , which helped him for approximately two weeks apiece. Patient continues on MSContin, Neurontin, and Mobic medications for pain with good relief. Patient denies adverse drug effects from medications. Today, pt denies new-onset weakness, bowel/bladder incontinence, or any other signs or symptoms of cauda equina syndrome. There are no signs of acute intoxication, and no indications of medication diversion or overuse. In addition to above, 13-point review of systems is also negative for chest pain , shortness of breath, changes in vision, changes in hearing, new onset weakness , abdominal pain, diarrhea, extreme fatigue, malaise, fever, skin changes, homicidal or suicidal ideation, or bowel or bladder incontinence. Vital Signs: Reviewed in EMR Gen: WDWN, AAOx3, NAD HEENT: NCAT, EOMI, hearing grossly normal Pulm: resp unlabored Abd: soft, NT, ND Neck: supple, trachea midline ROM in flexion lumbar spine: reduced ROM in extension lumbar spine: reduced Lumbar paravertebral tenderness: + Facet loading: + bilateral SI joint tenderness: neg Terrell's test: neg Straight leg raise: + LLE at 5 degrees Neuro: CN II-XII grossly intact, muscle strength lower extremities PRESERVED Imaging: Reviewed in EMR Assessment: 1. lumbar spondylosis with myelopathy 2. lumbar radiculitis 3. chronic pain syndrome Plan: 1. Explanation: Opioid and psychological risk scores were reviewed. Diagnoses , prognoses, and multiple treatment options including but not limited to physical therapy, interventional therapies, adjuvant medical therapies, narcotic medication therapies, and surgery were discussed with the patient and all questions were answered to the patient's satisfaction. 2. Opioid agreement: Patient has previously signed narcotic agreement, and was orally counseled to not overuse, abuse, divert, or cell medications, and to take them as prescribed by only 1 healthcare provider. The patient was also counseled to store opioid medications in a safe and preferably locked location. Patient was also counseled against driving or operating heavy equipment while using narcotic medications and also to not use alcohol or any illicit or recreational drugs. The patient verbalized understanding that lack of compliance with any of the above and likely result in failure to renew narcotic prescriptions, possible discharge from the clinic, and possible legal ramifications thereafter if indicated. 3. Counseling: The patient was counseled extensively on SMOKING CESSATION, BODY MASS INDEX, EXERCISE. Specifically, the patient was instructed regarding the importance of smoking cessation, weight control, and exercise in the context of both chronic pain and overall health. 4. Procedures: LESI L4-L5 5. Consultations: none 6. Investigations: None 7. Medications: MSContin 30 mg #60 with one refill, gabapentin and meloxicam with two refills 8. Disposition: f/u for procedure as scheduled PQRS measures: 1-Patient's medications are documented in the chart. 2-Tobacco use is negative 3-Patient has not had a pneumococcal vaccine. 4-Advanced care planning discussed, patient unable to give. 5-Opioid contract signed with the patient. 6-Pain positive, follow-up visit or procedure scheduled 7-Patient's blood pressure measured and documented, and patient will follow up with the primary care due to hypertension. 8-Patient's weight was measured, and body mass index ABOVE the normal limits, and counseling was done. Patient instructed to follow up with PCP. 9-Patient WAS NOT identified as an unhealthy alcohol user.
== END | disposition home or self-care (01) ==
LOC: PNWHC3 14:03
PROVIDERS: ATTEND Anesthesiology
DX: G89.4 Chronic pain syndrome (principal); M54.2 Cervicalgia; M47.26 Other spondylosis with radiculopathy, lumbar region; Z79.891 Long term (current) use of opiate analgesic; Z79.1 Long term (current) use of non-steroidal anti-inflammatories (NSAID)
CPT/HCPCS: 99211

== ENCOUNTER 2018-03-06 07:06 | Day surgery (SDC) | payer OTHER ==
[2018-03-01 14:15] VITALS: BMI 27.1
[2018-03-06 07:23] VITALS: RESP 16; TEMP 97.9
[2018-03-06] MEDS ORDERED: LIDOCAINE 1% 20 ML VIAL (10MG/ML) FOR IV START INTRADERMA ONE (07:23)
[2018-03-06] MEDS ORDERED: LACTATED RINGERS 1,000 ML IV ONE (07:23)
[2018-03-06] MEDS ORDERED: IV FLUID CONTINUATION 1,000 ML IV ONE (08:25)
[2018-03-06] MEDS ORDERED: LACTATED RINGERS 1,000 ML IV SCH (08:45)
--- NOTE | 2018-03-06 08:49 | FL ---
EXAMINATION TYPE: FL guided pain mgmt statistic DATE OF EXAM: 03/06/2018 HISTORY: Flouroscopy time 7 seconds of fluoroscopy provided. IMPRESSION: 1. Fluoroscopy time.
[2018-03-06 08:51] VITALS: BP 110/73; PULSE 72
--- NOTE | 2018-03-06 10:02 | P.PCN ---
Date of Procedure: 03/06/18 Surgeon: Michael Gutiérrez Pathology: none sent Condition: stable Disposition: PACU Description of Procedure: PREOPERATIVE DIAGNOSIS: 1-Lumbar radiculitis. POSTOPERATIVE DIAGNOSIS: 1-Lumbar radiculitis. PROCEDURE 1. Lumbar epidural steroid injection under fluoroscopic guidance at the L3-L4 level. 2. Lumbar epidurogram. ANESTHESIA: Local with 1% lidocaine; IV sedation with Versed/fentanyl. EBL: Minimal PROCEDURE INDICATION: The patient with low back pain and radiculitis symptoms unresponsive to conservative treatment. Fluoroscopy was used to optimize visualization of the needle placement and to maximize safety. No use of blood thinners. PROCEDURE DESCRIPTION / TECHNIQUE: The patient was seen and identified in the preoperative area. Risks, benefits, complications, and alternatives were discussed with the patient, including but not limited to bleeding, infection, nerve damage, allergic reactions to medications, and incomplete pain relief. The patient agreed to proceed with the procedure and signed the consent after all questions were answered. IV was started, and vital signs were stable. Patient was taken to the OR and time out was completed to confirm patient position, procedure, laterality of pain, and allergies. The patient was placed in the prone position on procedure table and a pillow was placed under the abdomen to reduce lumbar lordosis. The lumbosacral area was prepped and draped in the usual sterile fashion. Critical pause was taken. Vital signs were closely monitored during the procedure. Conscious sedation was used during the procedure to decrease patients anxiety. Using anterior-posterior fluoroscopy, the L3-L4 interlaminar space was identified and the skin over this site was marked and then infiltrated with 1% lidocaine subcutaneously. Subsequently, a 20-gauge 3.5-inch Tuohy epidural needle was inserted and advanced toward the epidural space using the Loss of resistance technique and guided by AP and lateral fluoroscopy. The correct needle position in the epidural space was verified with the injection of 2 mL of the water soluble contrast dye Omnipaque 300 contrast and observing an excellent epidurogram with the epidural spread of the dye, after negative aspiration for blood and CSF and in the absence of paresthesias. Again after negative aspiration, a 6 ml mixture of 80 mg DepoMedrol and 2 ml of preservative free Normal Saline, and 2 ml of preservative free lidocaine 1% solution was injected and a washout of epidurogram was seen. Needle was withdrawn intact, skin was cleansed, and bandages were applied. COMPLICATIONS: None COMMENTS: DISPOSITION / PLANS: The patient was placed in a supine position and transferred to the recovery area in a stable condition for observation. There was no evidence of lower extremity motor or sensory deficit after the procedure. Patient was discharged from the recovery room after meeting discharge criteria. Home discharge instructions were given to the patient by the staff. The patient was reexamined prior to discharge and there were no issues. The patient will schedule a repeat LESI in 4-6 weeks. Of note, patient's urine drug screen from last visit was positive for 6- acetylmorphine, but in small quantity, which could potentially represent heroin metabolite. Patient also admitted to running out of opioids and [place] This patient will return to our clinic only for procedures in the future and will not be prescribed any more opioids.
== END 2018-03-06 08:58 | disposition home or self-care (01) ==
LOC: ORPAIN 07:06
PROVIDERS: ATTEND Anesthesiology
DX: G89.4 Chronic pain syndrome (principal); M47.26 Other spondylosis with radiculopathy, lumbar region; Z79.1 Long term (current) use of non-steroidal anti-inflammatories (NSAID); Z79.891 Long term (current) use of opiate analgesic; Z91.013 Allergy to seafood
CPT/HCPCS: 62323; J2250; J1030; J3010; Q9966

== ENCOUNTER → 2018-09-18 | Outpatient (CLI) | payer OTHER ==
--- NOTE | 2018-09-18 11:33 | US ---
EXAMINATION TYPE: US extremity nonvascular ltd LT DATE OF EXAM: 09/18/2018 COMPARISON: NONE CLINICAL HISTORY: 48-year-old male M25.562 Pain in left knee; r/o abreu's cyst. Pt states pressure fe lt behind left knee x 10-12 days TECHNIQUE: Targeted ultrasound behind the left knee for assessment of Abreu's cyst. FINDINGS: Embalmer Assistant notes:Probable complex Abreu's cyst within left popliteal fossa= 4.9 x 1.7 x 2.5 cm . There is a fluid collection in the popliteal fossa medially with some areas of mildly thickened synov ium. IMPRESSION: Minimally complex moderate-sized 4.9 cm Abreu's cyst.
== END | disposition home or self-care (01) ==
LOC: RADUSWWP 07:41
PROVIDERS: ATTEND Family Medicine
DX: M25.562 Pain in left knee (principal); Z91.048 Other nonmedicinal substance allergy status

== ENCOUNTER 2018-10-03 13:08 | Emergency (ER) | payer OTHER ==
[2018-10-03 13:17] VITALS: RESP 18; TEMP 98.2
--- NOTE | 2018-10-03 14:32 | US ---
EXAMINATION TYPE: US venous doppler duplex UE RT DATE OF EXAM: 10/03/2018 COMPARISON: NONE CLINICAL HISTORY: Pain. Pain right arm SIDE PERFORMED: Right Normal compressibility is seen. Color flow images demonstrate patency of the visualized deep venous s tructures.. Right Arm: Negative for DVT IMPRESSION: 1. No diagnostic evidence of acute DVT
--- NOTE | 2018-10-03 14:42 | ED ---
Extremity Problem HPI - General Chief complaint: Extremity Problem,Nontraumatic Stated complaint: rt arm pain Time Seen by Provider: 10/03/18 13:28 Source: patient, RN notes reviewed Mode of arrival: ambulatory Limitations: no limitations - History of Present Illness Initial comments: 48-year-old male presents emergency Department chief complaint of right arm pain. Patient states is progressively gotten worse last week or 2. Patient states worse with movement better at rest. Denies any swelling. He has pain just passes right elbow. He is [id number]. He does do a lot of repetitive things. Denies any prior injury, surgery or any trauma. Denies any weakness. Denies chest pain or shortness breath. - Related Data Previous Rx's Medication Instructions Recorded Gabapentin [Neurontin] 400 mg PO TID #90 cap 02/22/18 Meloxicam [Mobic] 7.5 mg PO BID PRN #60 tab 02/22/18 Morphine Sulfate ER [Ms Contin] 30 mg PO Q12HR 30 Days #60 tab 02/22/18 predniSONE 50 mg PO DAILY #5 tab 10/03/18 Allergies Allergy/AdvReac Type Severity Reaction Status Date / Time shellfish derived Allergy Rash/Hives Verified 03/06/18 07:18 Review of Systems ROS Statement: Those systems with pertinent positive or pertinent negative responses have been documented in the HPI. ROS Other: All systems not noted in ROS Statement are negative. Past Medical History Past Medical History: COPD, Musculoskeletal Disorder Additional Past Medical History / Comment(s): hx ulcers, hx migraines 1988, degenerative disks in back History of Any Multi-Drug Resistant Organisms: None Reported Past Surgical History: Hernia Repair, Orthopedic Surgery Additional Past Surgical History / Comment(s): lt knee surgery, farrukh carpal tunnel; pain procedures Past Anesthesia/Blood Transfusion Reactions: No Reported Reaction Past Psychological History: No Psychological Hx Reported Smoking Status: Current every day smoker Past Alcohol Use History: None Reported Past Drug Use History: None Reported - Past Family History Father Family Medical History: Cancer Additional Family Medical History / Comment(s): lung cancer Mother Family Medical History: Cancer General Exam Limitations: no limitations General appearance: alert, in no apparent distress Head exam: Present: atraumatic, normocephalic, normal inspection Eye exam: Present: normal appearance, PERRL, EOMI. Absent: scleral icterus, conjunctival injection, periorbital swelling ENT exam: Present: normal exam, normal oropharynx, mucous membranes moist Neck exam: Present: normal inspection, full ROM. Absent: tenderness, meningismus, lymphadenopathy Respiratory exam: Present: normal lung sounds bilaterally. Absent: respiratory distress, wheezes, rales, rhonchi, stridor Cardiovascular Exam: Present: regular rate, normal rhythm, normal heart sounds. 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 Patient has lateral epicondylitis. Patient be given a course of steroids, prescription for tennis elbow brace patient follow-up with PCP return for any worsening symptoms. Disposition Clinical Impression: Lateral epicondylitis Disposition: HOME SELF-CARE Condition: Stable Instructions: Tennis Elbow (ED) Additional Instructions: Please return to the Emergency Department if symptoms worsen or any other concerns. Prescriptions: predniSONE 50 mg PO DAILY #5 tab Is patient prescribed a controlled substance at d/c from ED?: No Referrals: David Parham Jr, DO [Primary Care Provider] - 1-2 days Time of Disposition: 14:42
[2018-10-03 14:48] VITALS: BP 141/78; PULSE 64
== END 2018-10-03 14:56 | disposition home or self-care (01) ==
LOC: EC 13:08
DX: M77.11 Lateral epicondylitis, right elbow (principal); F17.200 Nicotine dependence, unspecified, uncomplicated; Z91.013 Allergy to seafood; Z98.890 Other specified postprocedural states; X50.3XXA Overexertion from repetitive movements, initial encounter
CPT/HCPCS: 99283

== ENCOUNTER 2019-03-01 09:32 | Emergency (ER) | payer OTHER ==
[2019-03-01 09:39] VITALS: BP 133/78; PULSE 60; RESP 18; TEMP 97.4
[2019-03-01] MEDS ORDERED: KETOROLAC 30 MG/ML 1 ML VIAL IVP STA (10:03)
[2019-03-01] MEDS ORDERED: SODIUM CHLORIDE 0.9% 500 ML 500 ML IV STA (10:03)
--- NOTE | 2019-03-01 10:05 | ED ---
General Adult HPI - General Chief complaint: Urogenital Stated complaint: back pain Time Seen by Provider: 03/01/19 09:35 Source: patient, RN notes reviewed Mode of arrival: ambulatory Limitations: no limitations - History of Present Illness Initial comments: This is a 49-year-old male who presents emergency Department with some left- sided CVA tenderness. Patient states he's never had a kidney stone before but he is worried about a stone or infection possibly. Patient states it does not radiate anywhere. Patient denies any dysuria hematuria urinary frequency. Patient states does appear to be worse with movement. Patient states the police lateral aspect the pain is gone per patient states if he lays on his side the pain is Paz patient states twisting definitely increases the pain. Patient states he has not done anything that he knows of to hurt his back. Patient denies any chest pain difficult breathing first breath per patient denies any diaphoretic episodes. Patient denies any injury or trauma. - Related Data Previous Rx's Medication Instructions Recorded Ibuprofen [Motrin] 600 mg PO Q6HR PRN #20 tab 03/01/19 Allergies Allergy/AdvReac Type Severity Reaction Status Date / Time shellfish derived Allergy Rash/Hives Verified 03/01/19 10:00 Review of Systems ROS Statement: Those systems with pertinent positive or pertinent negative responses have been documented in the HPI. ROS Other: All systems not noted in ROS Statement are negative. Past Medical History Past Medical History: COPD, Musculoskeletal Disorder Additional Past Medical History / Comment(s): hx ulcers, hx migraines 1988, degenerative disks in back History of Any Multi-Drug Resistant Organisms: None Reported Past Surgical History: Hernia Repair, Orthopedic Surgery Additional Past Surgical History / Comment(s): lt knee surgery, farrukh carpal tunnel; pain procedures Past Anesthesia/Blood Transfusion Reactions: No Reported Reaction Past Psychological History: No Psychological Hx Reported Smoking Status: Current every day smoker Past Alcohol Use History: None Reported Past Drug Use History: None Reported - Past Family History Father Family Medical History: Cancer Additional Family Medical History / Comment(s): lung cancer Mother Family Medical History: Cancer General Exam - General Exam Comments Initial Comments: GENERAL: Patient is well-developed and well-nourished. Patient is nontoxic and well- hydrated and is in mild distress. ENT: Neck is soft and supple. No significant lymphadenopathy is noted. Oropharynx is clear. Moist mucous membranes. Neck has full range of motion without eliciting any pain. EYES: The sclera were anicteric and conjunctiva were pink and moist. Extraocular movements were intact and pupils were equal round and reactive to light. Eyelids were unremarkable. PULMONARY: Unlabored respirations. Good breath sounds bilaterally. No audible rales rhonchi or wheezing was noted. CARDIOVASCULAR: There is a regular rate and rhythm without any murmurs gallops or rubs. ABDOMEN: Soft and nontender with normal bowel sounds. SKIN: Skin is clear with no lesions or rashes and otherwise unremarkable. NEUROLOGIC: Patient is alert and oriented x3. Cranial nerves II through XII are grossly intact. Motor and sensory are also intact. Normal speech, volume and content. Symmetrical smile. MUSCULOSKELETAL: Normal extremities with adequate strength and full range of motion. Right CVA tenderness on the left LYMPHATICS: No significant lymphadenopathy is noted PSYCHIATRIC: Normal psychiatric evaluation. Limitations: no limitations Course Vital Signs 03/01/19 09:36 Temperature 97.4 F L Pulse Rate 60 Respiratory 18 Rate Blood Pressure 133/78 O2 Sat by Pulse 98 Oximetry Medical Decision Making - Medical Decision Making Patient had a Toradol shot him or department felt considerably better. Patient stated he had no pain at this time. - Lab Data Result diagrams: 03/01/19 10:30 03/01/19 10:30 Lab Results 03/01/19 03/01/19 03/01/19 Range/Units 10:30 10:30 10:30 WBC 8.1 (3.8-10.6) k/uL RBC 5.38 (4.30-5.90) m/uL Hgb 14.9 (13.0-17.5) gm/dL Hct 43.6 (39.0-53.0) % MCV 81.1 (80.0-100.0) fL MCH 27.7 (25.0-35.0) pg MCHC 34.1 (31.0-37.0) g/dL RDW 15.5 (11.5-15.5) % Plt Count 379 (150-450) k/uL Neutrophils % 56 % Lymphocytes % 36 % Monocytes % 3 % Eosinophils % 3 % Basophils % 1 % Neutrophils # 4.5 (1.3-7.7) k/uL Lymphocytes # 2.9 (1.0-4.8) k/uL Monocytes # 0.2 (0-1.0) k/uL Eosinophils # 0.3 (0-0.7) k/uL Basophils # 0.0 (0-0.2) k/uL Sodium 139 (137-145) mmol/L Potassium 4.3 (3.5-5.1) mmol/L Chloride 104 (98-107) mmol/L Carbon Dioxide 27 (22-30) mmol/L Anion Gap 8 mmol/L BUN 11 (9-20) mg/dL Creatinine 1.13 (0.66-1.25) mg/dL Est GFR (CKD-EPI)AfAm 87 (>60 ml/min/1.73 sqM) Est GFR (CKD-EPI)NonAf 75 (>60 ml/min/1.73 sqM) Glucose 88 (74-99) mg/dL Calcium 9.6 (8.4-10.2) mg/dL Total Bilirubin 0.6 (0.2-1.3) mg/dL AST 24 (17-59) U/L ALT 22 (21-72) U/L Alkaline Phosphatase 59 (38-126) U/L Total Protein 6.8 (6.3-8.2) g/dL Albumin 4.3 (3.5-5.0) g/dL Urine Color Yellow Urine Appearance Clear (Clear) Urine pH 6.5 (5.0-8.0) Ur Specific [place] 1.019 (1.001-1.035) Urine Protein Negative (Negative) Urine Glucose (UA) Negative (Negative) Urine Ketones Negative (Negative) Urine Blood Negative (Negative) Urine Nitrite Negative (Negative) Urine Bilirubin Negative (Negative) Urine Urobilinogen 2.0 (<2.0) mg/dL Ur Leukocyte Esterase Negative (Negative) Disposition Clinical Impression: Musculoskeletal back pain Disposition: HOME SELF-CARE Condition: Good Instructions (If sedation given, give patient instructions): Back Pain (ED) Prescriptions: Ibuprofen [Motrin] 600 mg PO Q6HR PRN #20 tab PRN Reason: For pain Is patient prescribed a controlled substance at d/c from ED?: No Referrals: David Parham Jr, [Primary Care Provider] - 1-2 days Time of Disposition: 11:15
[2019-03-01 10:42] LABS: Appearance,Urine Clear (Clear); Bilirubin,Urine Negative (Negative); Blood,Urine Negative (Negative); Color,Urine Yellow; Glucose,Urine (UA) Negative (Negative); Ketones,Urine Negative (Negative); Leukocyte Esterase,Urine Negative (Negative); Nitrite,Urine Negative (Negative); PH, Urine 6.5 (5.0-8.0); Protein,Urine Negative (Negative); Specific Gravity,Urine 1.019 (1.001-1.035)
[2019-03-01 10:49] LABS: Basophils % (A) 1 %; Eosinophils # (A) 0.3 k/uL (0-0.7); Eosinophils % (A) 3 %; HCT 43.6 % (39.0-53.0); HGB 14.9 gm/dL (13.0-17.5); Lymphocytes # (A) 2.9 k/uL (1.0-4.8); Lymphocytes % (A) 36 %; MCH 27.7 pg (25.0-35.0); MCHC 34.1 g/dL (31.0-37.0); MCV 81.1 fL (80.0-100.0); Mean Platelet Volume 6.8; Monocytes # (A) 0.2 k/uL (0-1.0); Monocytes % (A) 3 %; Neutrophils # (A) 4.5 k/uL (1.3-7.7); Neutrophils % (A) 56 %; Platelet Count 379 k/uL (150-450); RBC 5.38 m/uL (4.30-5.90); RDW 15.5 % (11.5-15.5); WBC 8.1 k/uL (3.8-10.6)
[2019-03-01 11:00] LABS: Albumin 4.3 g/dL (3.5-5.0); Calcium 9.6 mg/dL (8.4-10.2); Potassium 4.3 mmol/L (3.5-5.1); Total Bilirubin 0.6 mg/dL (0.2-1.3); Total Protein 6.8 g/dL (6.3-8.2)
== END 2019-03-01 11:51 | disposition home or self-care (01) ==
LOC: EC 09:32
DX: M54.9 Dorsalgia, unspecified (principal); F17.200 Nicotine dependence, unspecified, uncomplicated; Z91.013 Allergy to seafood
CPT/HCPCS: 36415; 80053; 85025; 81003; 99283; 96374; 96361; J1885

== ENCOUNTER 2020-01-02 15:16 | Emergency (ER) | payer OTHER ==
[2020-01-02 15:27] VITALS: BP 129/88; PULSE 91; RESP 18; TEMP 97.5
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
== END 2020-01-02 16:17 | disposition home or self-care (01) ==
LOC: EC 15:16
DX: S13.4XXA Sprain of ligaments of cervical spine, initial encounter (principal); F17.200 Nicotine dependence, unspecified, uncomplicated; Z91.013 Allergy to seafood; Z86.69 Personal history of other diseases of the nervous system and sense organs; Z98.890 Other specified postprocedural states; V49.40XA Driver injured in collision with unspecified motor vehicles in traffic accident, initial encounter; Y92.410 Unspecified street and highway as the place of occurrence of the external cause
CPT/HCPCS: 70450; 72125; 99284

== ENCOUNTER 2020-03-26 13:44 | Emergency (ER) | payer OTHER ==
[2020-03-26 13:52] VITALS: RESP 18; TEMP 98.2
[2020-03-26 14:42] LABS: Basophils % (A) 0 %; Eosinophils # (A) 0.3 k/uL (0-0.7); Eosinophils % (A) 3 %; HCT 41.9 % (39.0-53.0); HGB 14.1 gm/dL (13.0-17.5); Lymphocytes # (A) 2.9 k/uL (1.0-4.8); Lymphocytes % (A) 28 %; MCH 27.9 pg (25.0-35.0); MCHC 33.7 g/dL (31.0-37.0); MCV 82.9 fL (80.0-100.0); Mean Platelet Volume 7.5; Monocytes # (A) 0.4 k/uL (0-1.0); Monocytes % (A) 4 %; Neutrophils # (A) 6.7 k/uL (1.3-7.7); Neutrophils % (A) 63 %; Platelet Count 306 k/uL (150-450); RBC 5.05 m/uL (4.30-5.90); RDW 13.5 % (11.5-15.5); WBC 10.5 k/uL (3.8-10.6)
--- NOTE | 2020-03-26 15:00 | ED ---
Seizure HPI - General Chief Complaint: Seizure Stated Complaint: Seizure Time Seen by Provider: 03/26/20 13:53 Source: EMS Mode of arrival: EMS Limitations: no limitations - History of Present Illness Initial Comments: 50-year-old male with history of previous head injury from fall secondary to seizure with previous seizure history currently no on antiepileptic, previous opioid addition currently on subzol presenting today for cc of seizure. Patient states that he has seizures approximately 30 minutes prior to arrival. Patient states that he was in bed with his then doesnt remember what happened. He states he didnt get much sleep the night before. He states he has a slight headache now otherwise no symptoms. Patient upon my examination does not appears post-ictal he is AAOx4, answering questions appropriately. He states he has no visual changes, chst pain, SOB, neck pain, jaw or arm pain Denies falls or recent trauma to head or neck. Patient denies any symptoms prior to seizure onset aside from being tired from staying up late. Patient on arrival is not in distress. - Related Data Previous Rx's Medication Instructions Recorded Ibuprofen [Motrin] 600 mg PO Q6HR PRN #20 tab 03/01/19 levETIRAcetam [Keppra] 500 mg PO DAILY 14 Days #14 tab 03/26/20 Allergies Allergy/AdvReac Type Severity Reaction Status Date / Time shellfish derived Allergy Rash/Hives Verified 03/26/20 13:52 Review of Systems ROS Statement: Those systems with pertinent positive or pertinent negative responses have been documented in the HPI. ROS Other: All systems not noted in ROS Statement are negative. Past Medical History Past Medical History: COPD, Musculoskeletal Disorder Additional Past Medical History / Comment(s): hx ulcers, hx migraines 1988, degenerative disks in back History of Any Multi-Drug Resistant Organisms: None Reported Past Surgical History: Hernia Repair, Orthopedic Surgery Additional Past Surgical History / Comment(s): lt knee surgery, farrukh carpal tunnel; pain procedures, Past Anesthesia/Blood Transfusion Reactions: No Reported Reaction Past Psychological History: No Psychological Hx Reported Smoking Status: Current every day smoker Past Alcohol Use History: None Reported Past Drug Use History: Marijuana - Past Family History Father Family Medical History: Cancer Additional Family Medical History / Comment(s): lung cancer Mother Family Medical History: Cancer General Exam - General Exam Comments Initial Comments: General: The patient is awake and alert, in no distress Eye: +3 mm pupils are equal, round and reactive to light, extra-ocular movements are intact. No nystagmus. There is normal conjunctiva bilaterally. No signs of icterus. Ears, nose, mouth and throat: There are moist mucous membranes and no oral lesions. Neck: The neck is supple, there is no tenderness or JVD. Cardiovascular: There is a regular rate and rhythm. No murmur, rub or gallop is appreciated. Respiratory: Lungs are clear to auscultation, respirations are non-labored, breath sounds are equal. No wheezes, stridor, rales, or rhonchi. Gastrointestinal: Soft, non-distended, non-tender abdomen without masses or organomegaly noted. There is no rebound or guarding present. Musculoskeletal: Normal ROM, no tenderness. Strength 5/5. Sensation intact. Radial pulses equal bilaterally 2+. Neurological: A&O x 3. CN II-XII intact, There are no obvious motor or sensory deficits. Coordination appears grossly intact. Speech is normal. Skin: Skin is warm and dry and no rashes or lesions are noted. Psychiatric: Cooperative, appropriate mood & affect, normal judgment. Limitations: no limitations Course Vital Signs 03/26/20 03/26/20 13:47 16:20 Temperature 98.2 F Pulse Rate 94 61 Respiratory 18 18 Rate Blood Pressure 123/83 131/85 O2 Sat by Pulse 100 100 Oximetry - Reevaluation(s) Reevaluation #1: MDM: Patient continues to be alert and oriented 4 family at bedside states he is at his baseline. I inquired on patient's positive benzodiazepine and urine he states that he does not take it frequently does not believe he is withdrawing he states he took a tablet approximately 2 days ago to help him sleep. I discussed how it is dangerous to withdrawal from benzodiazpines he states he does not take a large quantity and states he does not believe it is the cause. Brijesh initiated in ER. Labs stable. Patient will be discharged with PCP and neurology f/u. Dr. White is agreeable to this care plan as well as discharge at this time. 03/26/20 16:19 Medical Decision Making - Lab Data Result diagrams: 03/26/20 14:07 03/26/20 14:07 Lab Results 03/26/20 03/26/20 03/26/20 Range/Units 14:07 14:07 14:41 WBC 10.5 (3.8-10.6) k/uL RBC 5.05 (4.30-5.90) m/uL Hgb 14.1 (13.0-17.5) gm/dL Hct 41.9 (39.0-53.0) % MCV 82.9 (80.0-100.0) fL MCH 27.9 (25.0-35.0) pg MCHC 33.7 (31.0-37.0) g/dL RDW 13.5 (11.5-15.5) % Plt Count 306 (150-450) k/uL Neutrophils % 63 % Lymphocytes % 28 % Monocytes % 4 % Eosinophils % 3 % Basophils % 0 % Neutrophils # 6.7 (1.3-7.7) k/uL Lymphocytes # 2.9 (1.0-4.8) k/uL Monocytes # 0.4 (0-1.0) k/uL Eosinophils # 0.3 (0-0.7) k/uL Basophils # 0.0 (0-0.2) k/uL Sodium 138 (137-145) mmol/L Potassium 4.0 (3.5-5.1) mmol/L Chloride 106 (98-107) mmol/L Carbon Dioxide 17 L (22-30) mmol/L Anion Gap 15 mmol/L BUN 8 L (9-20) mg/dL Creatinine 1.23 (0.66-1.25) mg/dL Est GFR (CKD-EPI)AfAm 78 (>60 ml/min/1.73 sqM) Est GFR (CKD-EPI)NonAf 67 (>60 ml/min/1.73 sqM) Glucose 126 H (74-99) mg/dL Calcium 9.4 (8.4-10.2) mg/dL Total Bilirubin 0.5 (0.2-1.3) mg/dL AST 23 (17-59) U/L ALT 12 (4-49) U/L Alkaline Phosphatase 67 (38-126) U/L Total Protein 7.0 (6.3-8.2) g/dL Albumin 4.5 (3.5-5.0) g/dL Urine Color Yellow Urine Appearance Clear (Clear) Urine pH 5.5 (5.0-8.0) Ur Specific [place] 1.018 (1.001-1.035) Urine Protein 1+ H (Negative) Urine Glucose (UA) Negative (Negative) Urine Ketones 1+ H (Negative) Urine Blood Small H (Negative) Urine Nitrite Negative (Negative) Urine Bilirubin Negative (Negative) Urine Urobilinogen <2.0 (<2.0) mg/dL Ur Leukocyte Esterase Negative (Negative) Urine RBC 5 (0-5) /hpf Urine WBC <1 (0-5) /hpf Hyaline Casts 1 (0-2) /lpf Urine Mucus Rare H (None) /hpf Urine Opiates Screen Not Detected (NotDetected) Ur Oxycodone Screen Not Detected (NotDetected) Urine Methadone Screen Not Detected (NotDetected) Ur Propoxyphene Screen Not Detected (NotDetected) Ur Barbiturates Screen Not Detected (NotDetected) U Tricyclic Antidepress Not Detected (NotDetected) Ur Phencyclidine Scrn Not Detected (NotDetected) Ur Amphetamines Screen Not Detected (NotDetected) U Methamphetamines Scrn Not Detected (NotDetected) U Benzodiazepines Scrn Detected H (NotDetected) Urine Cocaine Screen Not Detected (NotDetected) U Marijuana (THC) Screen Detected H (NotDetected) Serum Alcohol <10 mg/dL - EKG Data EKG Comments: Ventricular rate 70 beats minute, NE interval 172 ms, QR mormon 102 ms, QT/QTc 412/469 this is normal sinus rhythm with incomplete right bundle branch block. There is no ST elevation or depression noted. No previous for comparison. reviewed by attending, agreeable to interpretation. Disposition Clinical Impression: Hx of seizure disorder, Seizure Disposition: HOME SELF-CARE Condition: Good Instructions (If sedation given, give patient instructions): Recurrent Seizures in Adults (ED) Additional Instructions: Please use medication as discussed. Please follow-up with family doctor in the next 2 days, schedule appointment with Dr. Olivo and take anticonvulsive medications as discussed. please return immediately for recurrent seizure. Please return to emergency room if the symptoms increase or worsen or for any ot her concerns. Prescriptions: levETIRAcetam [Keppra] 500 mg PO DAILY 14 Days #14 tab Is patient prescribed a controlled substance at d/c from ED?: No Referrals: Mark Merchant MD [Primary Care Provider] - 1-2 days Michelle Olivo MD [Medical Doctor] - 1-2 days Time of Disposition: 16:03
[2020-03-26 15:03] LABS: ALT 12 U/L (4-49); AST 23 U/L (17-59); African American GFR (CKD) 78 (>60 ml/min/1.73 sqM); Albumin 4.5 g/dL (3.5-5.0); Alcohol <10 mg/dL; Alkaline Phosphatase 67 U/L (38-126); Anion Gap 15 mmol/L; Blood Urea Nitrogen 8 mg/dL (9-20); Calcium 9.4 mg/dL (8.4-10.2); Carbon Dioxide 17 mmol/L (22-30); Chloride 106 mmol/L (98-107); Glucose 126 mg/dL (74-99); Non-African American GFR(CKD) 67 (>60 ml/min/1.73 sqM); Sodium 138 mmol/L (137-145); Total Bilirubin 0.5 mg/dL (0.2-1.3)
[2020-03-26 15:22] LABS: Amphetamine Screen,Urine Not Detected (NotDetected); Barbiturate Screen,Urine Not Detected (NotDetected); Benzodiazepines Screen,Urine Detected (NotDetected); Cocaine Screen,Urine Not Detected (NotDetected); Methadone Screen, Urine Not Detected (NotDetected); Opiate Screen,Urine Not Detected (NotDetected); Oxycodone Screen, Urine Not Detected (NotDetected); Phencyclidine Screen,Urine Not Detected (NotDetected); Tricyclic Antidepressant,Urine Not Detected (NotDetected); Urn Cannabinoid Scrn Detected (NotDetected)
--- NOTE | 2020-03-26 15:25 | CT ---
EXAMINATION TYPE: CT brain wo con DATE OF EXAM: 03/26/2020 COMPARISON: 01/02/2020 HISTORY: Seizure activity. CT DLP: 1040.[address] of the brain was performed. The ventricles, basal cisterns and sulci overlying the cerebral convexities demonstrate mild enlargem ent. There is no evidence for intracranial hemorrhage or sulcal effacement. There is decreased attenuation about the periventricular white matter and deep white matter of both c erebral hemispheres, compatible with chronic small vessel ischemia. Differential diagnosis does inclu de demyelination. No mass effects are seen.No midline shift. Osseous calvarium is intact. If symptoms persist consider MRI. IMPRESSION: 1. Age related atrophic and chronic small vessel ischemic change without acute intracranial process s een at this time.
[2020-03-26 15:27] LABS: Hyaline Casts,Urine 1 /lpf (0-2); Mucus,Urine Rare /hpf; RBC,Urine 5 /hpf (0-5); WBC,Urine <1 /hpf (0-5)
[2020-03-26] MEDS ORDERED: levETIRAcetam 500 MG TAB PO STA (16:02)
[2020-03-26 16:16] LABS: Appearance,Urine Clear (Clear); Bilirubin,Urine Negative (Negative); Blood,Urine Small (Negative); Color,Urine Yellow; Glucose,Urine (UA) Negative (Negative); Ketones,Urine 1+ (Negative); Leukocyte Esterase,Urine Negative (Negative); Nitrite,Urine Negative (Negative); PH, Urine 5.5 (5.0-8.0); Protein,Urine 1+ (Negative); Specific Gravity,Urine 1.018 (1.001-1.035); Urobilinogen,Urine <2.0 mg/dL (<2.0)
[2020-03-26 16:21] VITALS: BP 131/85; PULSE 61
== END 2020-03-26 16:33 | disposition home or self-care (01) ==
LOC: EC 13:44
DX: G40.909 Epilepsy, unspecified, not intractable, without status epilepticus (principal); F17.200 Nicotine dependence, unspecified, uncomplicated; Z91.013 Allergy to seafood
CPT/HCPCS: 36415; 93005; 80053; 85025; 81001; 80306; 70450; 99284; G0480; 80320

== ENCOUNTER → 2020-04-21 | Outpatient (CLI) | payer OTHER ==
--- NOTE | 2020-04-21 08:19 | US ---
EXAMINATION TYPE: US kidneys/renal and bladder DATE OF EXAM: 04/21/2020 COMPARISON: MRI lumbar spine August 09, 2016 CLINICAL HISTORY: R31.9 hematuria. EXAM MEASUREMENTS: Right Kidney: 10.0 x 3.9 x 4.9 cm Left Kidney: 9.8 x 5.5 x 5.7 cm Right Kidney: No hydronephrosis or masses seen Left Kidney: No hydronephrosis or masses seen Bladder: not well distended Bilateral Jets seen: No There is no evidence for hydronephrosis at this point in time. No nephrolithiasis is seen. No yuliya s are identified. The urinary bladder is suboptimally distended. IMPRESSION: Source of hematuria not identified. If symptoms persist further investigation with CT uro gram would be warranted.
== END ==
LOC: RADUSWWP 07:12
PROVIDERS: ATTEND Internal Medicine
DX: R31.9 Hematuria, unspecified (principal)
CPT/HCPCS: 76770

== ENCOUNTER → 2022-10-12 | Outpatient (CLI) | payer OTHER ==
--- NOTE | 2022-10-13 22:45 | MR ---
EXAMINATION TYPE: MR lumbar spine wo con DATE OF EXAM: 10/12/2022 6:53 PM COMPARISON: CT lumbar spine 09/06/2022. CLINICAL INDICATION:Male, 52 years old with history of M47.26 SPONDYLOSIS WITH RADICULOPATHY, LUMBAR PARK; TECHNIQUE: Multi planar, multi sequence imaging was performed utilizing: T1-weighted, T2-weighted, a nd turbo inversion recovery imaging of the lumbar spine. IV Contrast: None. FINDINGS: Alignment: The lumbar vertebral bodies have preserved heights. Retrolisthesis of L5-S1. Cord: The conus medullaris and the distal spinal cord appear unremarkable with regards to their signa l intensity and morphology. Bones/Discs: Multilevel degenerative disc disease is noted and most pronounced at the L5-S1. There i s bony edema in the adjoining endplates of L5 and S1. Multilevel disc desiccation is present. L1-L2: No evidence of significant spinal canal stenosis or neural foraminal stenosis. L2-L3: No evidence of significant spinal canal stenosis or neural foraminal stenosis. L3-L4: Disc bulge and facet joint arthropathy result in mild spinal canal and mild bilateral neural f oraminal stenosis. Synovial cyst on the left measuring up to 8 mm. L4-L5: Disc bulge and facet joint arthropathy result in severe spinal canal and moderate to severe bi lateral neural foraminal stenosis. L5-S1: Disc bulge and facet joint arthropathy result in mild spinal canal and moderate to severe bila teral neural foraminal stenosis. Other findings: None. IMPRESSION: 1. L4-L5 spinal severe spinal canal stenosis secondary disc bulge and facet joint arthropathy. 2. Facet joint arthropathy resulting in moderate to severe bilateral L4-L5 and L5-S1 neural foramina l stenosis. 3. Retrolisthesis of L5 on S1.
== END | disposition home or self-care (01) ==
LOC: RADMRIMAIN 18:10
PROVIDERS: ATTEND Nurse Practitioner Family
DX: M47.26 Other spondylosis with radiculopathy, lumbar region (principal); M51.16 Intervertebral disc disorders with radiculopathy, lumbar region; M48.061 Spinal stenosis, lumbar region without neurogenic claudication; M43.17 Spondylolisthesis, lumbosacral region; M99.73 Connective tissue and disc stenosis of intervertebral foramina of lumbar region
CPT/HCPCS: 72148

== ENCOUNTER 2024-09-26 09:35 | Observation (INO) | payer OTHER ==
[2024-09-26 10:46] LABS: Appearance,Urine Clear (Clear); Bilirubin,Urine 1+ (Negative); Blood,Urine Negative (Negative); Color,Urine Dark Brown; Glucose,Urine (UA) Negative (Negative); Hyaline Casts,Urine 4 /lpf (0-2); Ketones,Urine 2+ (Negative); Leukocyte Esterase,Urine Negative (Negative); Mucus,Urine Many /hpf; Nitrite,Urine Negative (Negative); Protein,Urine 1+ (Negative); RBC,Urine 7 /hpf (0-5); Specific Gravity,Urine 1.039 (1.001-1.035); WBC,Urine 1 /hpf (0-5)
--- NOTE | 2024-09-26 10:54 | ED ---
General Adult HPI - General Chief complaint: Psychiatric Symptoms Stated complaint: AMS Time Seen by Provider: 09/26/24 09:42 Source: patient, family, RN notes reviewed, old records reviewed Mode of arrival: ambulatory Limitations: no limitations - History of Present Illness Initial comments: 54-year-old male presenting for mental health evaluation. Patient is being petition by family member for bizarre behavior. They are concerned that he is inappropriately taking Xanax. Patient is technically ANO x 3 but is making some bizarre comments. He denies suicidal or homicidal ideation. Family states that his behavior has been off for the past 1 to 2 weeks. He states that he attempted to jump out of a moving vehicle. This did not occur and there was no reported injury. Family states that he was asked to leave work secondary to bizarre behavior. - Related Data Home Medications Medication Instructions Recorded Confirmed No Known Home Medications 09/26/24 09/26/24 Allergies Allergy/AdvReac Type Severity Reaction Status Date / Time No Known Allergies Allergy Verified 09/26/24 11:33 Review of Systems ROS Statement: Those systems with pertinent positive or pertinent negative responses have been documented in the HPI. ROS Other: All systems not noted in ROS Statement are negative. Past Medical History Past Medical History: COPD, Musculoskeletal Disorder Additional Past Medical History / Comment(s): hx ulcers, hx migraines 1988, d egenerative disks in back History of Any Multi-Drug Resistant Organisms: None Reported Past Surgical History: Hernia Repair, Orthopedic Surgery Additional Past Surgical History / Comment(s): lt knee surgery, farrukh carpal tunnel; pain procedures, Lumbar surgery 12/21/22 Past Anesthesia/Blood Transfusion Reactions: No Reported Reaction Additional Past Anesthesia/Blood Transfusion Reaction / Comment(s): no blood transfusion Past Psychological History: No Psychological Hx Reported Smoking Status: Current every day smoker Past Alcohol Use History: None Reported Past Drug Use History: Marijuana - Past Family History Father Family Medical History: Cancer Additional Family Medical History / Comment(s): lung cancer Mother Family Medical History: Cancer General Exam Limitations: no limitations General appearance: alert, anxious Head exam: Present: atraumatic, normocephalic Eye exam: Present: normal appearance, PERRL ENT exam: Present: normal exam Neck exam: Present: normal inspection. Absent: tenderness, meningismus Respiratory exam: Present: normal lung sounds bilaterally. Absent: respiratory distress, wheezes Cardiovascular Exam: Present: regular rate, normal rhythm GI/Abdominal exam: Present: soft. Absent: distended, tenderness Neurological exam: Present: alert, oriented X3, CN II-XII intact, normal gait. Absent: motor sensory deficit Psychiatric exam: Present: agitated, anxious Skin exam: Present: warm, dry, intact Course Vital Signs 09/26/24 09:59 Temperature 98.0 F Pulse Rate 99 Respiratory 18 Rate Blood Pressure 134/89 O2 Sat by Pulse 98 Oximetry - Reevaluation(s) Reevaluation #1: 09/26/24 11:38 Patient medically cleared for EPS Medical Decision Making - Medical Decision Making Was pt. sent in by a medical professional or institution (, PA, CONSTRUCTION EXECUTIVE, urgent care, hospital, or assisted...) When possible be specific @ -No Did you speak to anyone other than the patient for history (EMS, parent, family, police, friend...)? What history was obtained from this source @ -No Did you review nursing and triage notes (agree or disagree)? Why? @ -I reviewed and agree with nursing and triage notes Were old charts reviewed (outside hosp., previous admission, EMS record, old EKG, old radiological studies, urgent care reports/EKG's, assisted records)? Report findings @ -No old charts were reviewed Differential Mental Health Depression, anxiety, bipolar, psychosis, schizophrenia, borderline personality, situational depression, adjustment disorder, behavioral disorder, brain tumor, malingering, substance abuse, encephalopathy, medication reaction, dementia, hypothyroidism, degenerative neurologic disorder, lupus.... This is not meant to be all-inclusive list Differential Altered Mental Status: Hypoglycemia, DKA, hypercapnia, ETOH, overdose, CO poisoning, trauma, myxedema coma, HTN encephalopathy, infection, encephalitis, psychosis, intercranial hemorrhage, hepatic encephalopathy, meningitis, CVA, this is not meant to be an all-inclusive list EKG interpreted by me (3pts min.). @ -As above X-rays interpreted by me (1pt min.). @ -None done CT interpreted by me (1pt min.). @ -CT brain has been ordered but patient is not compliant with study U/S interpreted by me (1pt. min.). @ -None done What testing was considered but not performed or refused? (CT, X-rays, U/S, labs)? Why? @ -None What meds were considered but not given or refused? Why? @ -None Did you discuss the management of the patient with other professionals (professionals i.e. , PA, CONSTRUCTION EXECUTIVE, lab, RT, psych nurse, social media editor, skip tracer, teacher, chief clinical officer, lead case manager)? Give summary @ -[Case discussed with the EPS nurse at this time psychiatry recommending [facility] admission with psychiatric consult. [facility] will admit Was smoking cessation discussed for >3mins.? @ -No Was critical care preformed (if so, how long)? @ -No Were there social determinants of health that impacted care today? How? (Homelessness, low income, unemployed, alcoholism, drug addiction, transportation, low edu. Level, literacy, decrease access to med. care, [facility], rehab)? @ -No Was there de-escalation of care discussed even if they declined (Discuss DNR or withdrawal of care, Hospice)? DNR status @ -No What co-morbidities impacted this encounter? (DM, HTN, Smoking, COPD, CAD, Can cer, CVA, ARF, Chemo, Hep., AIDS, mental health diagnosis, sleep apnea, morbid obesity)? @ -Cocaine and benzodiazepine abuse Was patient admitted / discharged? Hospital course, mention meds given and route, prescriptions, significant lab abnormalities, going to OR and other pertinent info. @ -[-year-old male presenting with56 flight of ideas, acute agitation and bizarre behavior. Patient is a risk to himself. He has been petitioned by family for psychiatric evaluation. Patient has no prior history of psychiatric illness. Laboratory test including CBC CMP urinalysis unremarkable. Patient does test positive for cocaine and benzodiazepines as well as marijuana. This may be a drug-induced psychosis versus acute delirium. Patient will benefit from medical admission with psychiatry on consult. Benzodiazepine will be used for agitation. Undiagnosed new problem with uncertain prognosis? @ -No Drug Therapy requiring intensive monitoring for toxicity (Heparin, Nitro, Insulin, Cardizem)? @ -No Were any procedures done? @ -No Diagnosis/symptom? @ -Acute delirium, acute psychosis Acute, or Chronic, or Acute on Chronic? @ -Acute Uncomplicated (without systemic symptoms) or Complicated (systemic symptoms)? @ -Default Side effects of treatment? @ -No Exacerbation, Progression, or Severe Exacerbation? @ -No Poses a threat to life or bodily function? How? (Chest pain, [place], [place], pneumonia, PE, COPD, DKA, ARF, appy, cholecystitis, CVA, Diverticulitis, Homicidal, Suicidal, threat to staff... and all critical care pts) @ -[Yes, agitated delirium - Lab Data Result diagrams: 09/26/24 10:55 09/26/24 10:55 Lab Results 09/26/24 09/26/24 09/26/24 Range/Units 10:35 10:35 10:55 WBC 8.5 (3.8-10.6) k/uL RBC 6.04 H (4.30-5.90) m/uL Hgb 17.0 (13.0-17.5) gm/dL Hct 49.2 (39.0-53.0) % MCV 81.5 (80.0-100.0) fL MCH 28.2 (25.0-35.0) pg MCHC 34.6 (31.0-37.0) g/dL RDW 14.0 (11.5-15.5) % Plt Count 405 (150-450) k/uL MPV 7.3 Neutrophils % 65 % Lymphocytes % 29 % Monocytes % 3 % Eosinophils % 2 % Basophils % 0 % Neutrophils # 5.5 (1.3-7.7) k/uL Lymphocytes # 2.4 (1.0-4.8) k/uL Monocytes # 0.3 (0-1.0) k/uL Eosinophils # 0.2 (0-0.7) k/uL Basophils # 0.0 (0-0.2) k/uL Sodium (137-145) mmol/L Potassium (3.5-5.1) mmol/L Chloride (98-107) mmol/L Carbon Dioxide (22-30) mmol/L Anion Gap mmol/L BUN (9-20) mg/dL Creatinine (0.66-1.25) mg/dL Est GFR (CKD-EPI)AfAm (>60 ml/min/1.73 sqM) Est GFR (CKD-EPI)NonAf (>60 ml/min/1.73 sqM) Glucose (74-99) mg/dL Calcium (8.4-10.2) mg/dL Total Bilirubin (0.2-1.3) mg/dL AST (17-59) U/L ALT (4-49) U/L Alkaline Phosphatase (38-126) U/L Total Protein (6.3-8.2) g/dL Albumin (3.5-5.0) g/dL Urine Color Dark Brown Urine Appearance Clear (Clear) Urine pH 6.0 (5.0-8.0) Ur Specific [place] 1.039 H (1.001-1.035) Urine Protein 1+ H (Negative) Urine Glucose (UA) Negative (Negative) Urine Ketones 2+ H (Negative) Urine Blood Negative (Negative) Urine Nitrite Negative (Negative) Urine Bilirubin 1+ H (Negative) Urine Urobilinogen 12.0 (<2.0) mg/dL Ur Leukocyte Esterase Negative (Negative) Urine RBC 7 H (0-5) /hpf Urine WBC 1 (0-5) /hpf Hyaline Casts 4 H (0-2) /lpf Urine Mucus Many H (None) /hpf Urine Opiates Screen Not Detected (NotDetected) Ur Oxycodone Screen Not Detected (NotDetected) Urine Methadone Screen Not Detected (NotDetected) Ur Barbiturates Screen Not Detected (NotDetected) U Tricyclic Antidepress Not Detected (NotDetected) Ur Phencyclidine Scrn Not Detected (NotDetected) Ur Amphetamines Screen Not Detected (NotDetected) U Methamphetamines Scrn Not Detected (NotDetected) U Benzodiazepines Scrn Detected H (NotDetected) Urine Cocaine Screen Detected H (NotDetected) U Marijuana (THC) Screen Detected H (NotDetected) Serum Alcohol mg/dL 09/26/24 Range/Units 10:55 WBC (3.8-10.6) k/uL RBC (4.30-5.90) m/uL Hgb (13.0-17.5) gm/dL Hct (39.0-53.0) % MCV (80.0-100.0) fL MCH (25.0-35.0) pg MCHC (31.0-37.0) g/dL RDW (11.5-15.5) % Plt Count (150-450) k/uL MPV Neutrophils % % Lymphocytes % % Monocytes % % Eosinophils % % Basophils % % Neutrophils # (1.3-7.7) k/uL Lymphocytes # (1.0-4.8) k/uL Monocytes # (0-1.0) k/uL Eosinophils # (0-0.7) k/uL Basophils # (0-0.2) k/uL Sodium 140 (137-145) mmol/L Potassium 4.2 (3.5-5.1) mmol/L Chloride 105 (98-107) mmol/L Carbon Dioxide 28 (22-30) mmol/L Anion Gap 7 mmol/L BUN 15 (9-20) mg/dL Creatinine 1.19 (0.66-1.25) mg/dL Est GFR (CKD-EPI)AfAm 79 (>60 ml/min/1.73 sqM) Est GFR (CKD-EPI)NonAf 68 (>60 ml/min/1.73 sqM) Glucose 111 H (74-99) mg/dL Calcium 9.9 (8.4-10.2) mg/dL Total Bilirubin 1.3 (0.2-1.3) mg/dL AST 75 H (17-59) U/L ALT 42 (4-49) U/L Alkaline Phosphatase 80 (38-126) U/L Total Protein 9.2 H (6.3-8.2) g/dL Albumin 5.5 H (3.5-5.0) g/dL Urine Color Urine Appearance (Clear) Urine pH (5.0-8.0) Ur Specific [place] (1.001-1.035) Urine Protein (Negative) Urine Glucose (UA) (Negative) Urine Ketones (Negative) Urine Blood (Negative) Urine Nitrite (Negative) Urine Bilirubin (Negative) Urine Urobilinogen (<2.0) mg/dL Ur Leukocyte Esterase (Negative) Urine RBC (0-5) /hpf Urine WBC (0-5) /hpf Hyaline Casts (0-2) /lpf Urine Mucus (None) /hpf Urine Opiates Screen (NotDetected) Ur Oxycodone Screen (NotDetected) Urine Methadone Screen (NotDetected) Ur Barbiturates Screen (NotDetected) U Tricyclic Antidepress (NotDetected) Ur Phencyclidine Scrn (NotDetected) Ur Amphetamines Screen (NotDetected) U Methamphetamines Scrn (NotDetected) U Benzodiazepines Scrn (NotDetected) Urine Cocaine Screen (NotDetected) U Marijuana (THC) Screen (NotDetected) Serum Alcohol <10 mg/dL Disposition Clinical Impression: Acute psychosis, Acute delirium Disposition: ADMITTED IP TO THIS HOSP Condition: Stable Is patient prescribed a controlled substance at d/c from ED?: No Referrals: None,Stated [Primary Care Provider] - 1-2 days Time of Disposition: 13:42
[2024-09-26 10:55] LABS: Amphetamine Screen,Urine Not Detected (NotDetected); Barbiturate Screen,Urine Not Detected (NotDetected); Benzodiazepines Screen,Urine Detected (NotDetected); Cocaine Screen,Urine Detected (NotDetected); Methadone Screen, Urine Not Detected (NotDetected); Opiate Screen,Urine Not Detected (NotDetected); Oxycodone Screen, Urine Not Detected (NotDetected); Phencyclidine Screen,Urine Not Detected (NotDetected); Tricyclic Antidepressant,Urine Not Detected (NotDetected); Urn Cannabinoid Scrn Detected (NotDetected)
[2024-09-26 11:10] LABS: Basophils % (A) 0 %; Eosinophils # (A) 0.2 k/uL (0-0.7); Eosinophils % (A) 2 %; HCT 49.2 % (39.0-53.0); Lymphocytes # (A) 2.4 k/uL (1.0-4.8); Lymphocytes % (A) 29 %; MCH 28.2 pg (25.0-35.0); MCHC 34.6 g/dL (31.0-37.0); MCV 81.5 fL (80.0-100.0); Mean Platelet Volume 7.3; Monocytes # (A) 0.3 k/uL (0-1.0); Monocytes % (A) 3 %; Neutrophils # (A) 5.5 k/uL (1.3-7.7); Neutrophils % (A) 65 %; Platelet Count 405 k/uL (150-450); RBC 6.04 m/uL (4.30-5.90); WBC 8.5 k/uL (3.8-10.6)
[2024-09-26 11:21] LABS: ALT 42 U/L (4-49); AST 75 U/L (17-59); African American GFR (CKD) 79 (>60 ml/min/1.73 sqM); Albumin 5.5 g/dL (3.5-5.0); Alcohol <10 mg/dL; Alkaline Phosphatase 80 U/L (38-126); Anion Gap 7 mmol/L; Blood Urea Nitrogen 15 mg/dL (9-20); Calcium 9.9 mg/dL (8.4-10.2); Carbon Dioxide 28 mmol/L (22-30); Chloride 105 mmol/L (98-107); Glucose 111 mg/dL (74-99); Non-African American GFR(CKD) 68 (>60 ml/min/1.73 sqM); Potassium 4.2 mmol/L (3.5-5.1); Sodium 140 mmol/L (137-145); Total Bilirubin 1.3 mg/dL (0.2-1.3); Total Protein 9.2 g/dL (6.3-8.2)
[2024-09-26] MEDS: LORazepam 2 MG/ML INJ IV STA (11:26)
[2024-09-26] MEDS ORDERED: LORazepam 2 MG/ML INJ IV PRN ×2 (13:36)
[2024-09-26] MEDS ORDERED: NALOXONE 0.4 MG/ML 1 ML VIAL IV PRN (13:37)
--- NOTE | 2024-09-26 15:56 | CT ---
EXAMINATION TYPE: CT brain wo con DATE OF EXAM: 09/26/2024 3:52 PM COMPARISON: None. CLINICAL INDICATION: Male, 54 years old with history of AMS, AMS. TECHNIQUE: Brain: Axial CT images of the brain were obtained with coronal and sagittal reformats created and rev iewed. Contrast used: None. Oral contrast used: None. CT DLP: 1178.4 mGycm, Automated exposure control for dose reduction was used. FINDINGS: Brain: Extra-axial spaces: No abnormal extra-axial fluid collections. Ventricular system: Within normal limits Cerebral parenchyma: No acute intraparenchymal hemorrhage or mass effect. The velez-white junction is well differentiated. Cerebellum: Unremarkable. Mass effect: No evidence of midline shift. Intracranial vasculature: unremarkable Soft tissues: Normal. Calvarium/osseous structures: No depressed skull fracture. Paranasal sinuses and mastoid air cells: Mild scattered paranasal sinus disease. Visualized orbits: Orbital contents are intact. IMPRESSION: No acute intracranial process. [facility], , 09/26/2024 3:54 PM
[2024-09-26] MEDS: LORazepam 2 MG/ML INJ IV PRN (17:06)
[2024-09-26] MEDS: ZIPRASIDONE 20 MG VIAL IM STA (18:03)
[2024-09-26] MEDS: SODIUM CHLORIDE 0.9% 1,000 ML IV SCH (18:04)
[2024-09-27 05:49] VITALS: RESP 18
[2024-09-27 08:08] VITALS: BP 123/83; PULSE 115; TEMP 98.1
--- NOTE | 2024-09-27 10:00 | P.HPIM ---
History of Present Illness Patient is a pleasant 54-year-old male was brought in because of agitation. Patient is alert oriented x 3 with totally appropriate not agitated at this time. Patient admits to using marijuana and cocaine. Apparently patient was partying and then it got out of hand and was agitated and family members brought him and petitioned him. Patient was admitted overnight patient is clinically doing well totally appropriate not agitated no evidence of acute psychosis. Patient's urine drug screen is positive for benzodiazepines cocaine and marijuana. REVIEW OF SYSTEMS: All other systems are negative except those mentioned in the HPI PHYSICAL EXAMINATION: GENERAL: The patient is alert and oriented x3, not in any acute distress. Well developed, well nourished. HEENT: Pupils are round and equally reacting to light. EOMI. No scleral icterus. No conjunctival pallor. Normocephalic, atraumatic. No pharyngeal erythema. No thyromegaly. CARDIOVASCULAR: S1 and S2 present. No murmurs, rubs, or gallops. PULMONARY: Chest is clear to auscultation, no wheezing or crackles. ABDOMEN: Soft, nontender, nondistended, normoactive bowel sounds. No palpable organomegaly. MUSCULOSKELETAL: No joint swelling or deformity. EXTREMITIES: No cyanosis, clubbing, or pedal edema. NEUROLOGICAL: Gross neurological examination did not reveal any focal deficits. SKIN: No rashes. Assessment and plan -Agitation secondary to polysubstance use clinically appropriate at this time I do not believe patient may need evaluation by psychiatrist. Patient can be discharged today -Polysubstance use: Counseling was provided regarding this Patient will be discharged today Past Medical History Past Medical History: COPD, Musculoskeletal Disorder Additional Past Medical History / Comment(s): hx ulcers, hx migraines 1988, degenerative disks in back, 3x seizures History of Any Multi-Drug Resistant Organisms: None Reported Past Surgical History: Hernia Repair, Orthopedic Surgery Additional Past Surgical History / Comment(s): lt knee surgery, farrukh carpal tunnel; pain procedures, Lumbar surgery 12/21/22 Past Anesthesia/Blood Transfusion Reactions: No Reported Reaction Additional Past Anesthesia/Blood Transfusion Reaction / Comment(s): no blood transfusion Past Psychological History: No Psychological Hx Reported Smoking Status: Current every day smoker Past Alcohol Use History: None Reported Additional Past Alcohol Use History / Comment(s): current smoker for 30 years 1ppd Past Drug Use History: Marijuana Additional Drug Use History / Comment(s): . - Past Family History Father Family Medical History: Cancer Additional Family Medical History / Comment(s): lung cancer Mother Family Medical History: Cancer Medications and Allergies Home Medications Medication Instructions Recorded Confirmed Type No Known Home Medications 09/26/24 09/26/24 History Allergies Allergy/AdvReac Type Severity Reaction Status Date / Time No Known Allergies Allergy Verified 09/26/24 11:33 Physical Exam Vitals: Vital Signs Temp Pulse Pulse Resp BP BP Pulse Ox 09/27/24 07:00 98.1 F 115 H 18 123/83 96 09/27/24 05:48 85 18 118/77 96 09/26/24 22:42 72 17 118/85 99 09/26/24 21:53 78 18 118/83 97 09/26/24 18:41 95 16 112/77 94 L Intake and Output 09/26/24 09/27/24 09/27/24 22:59 06:59 14:59 Intake Total 236 Balance 236 Intake: Oral 236 Other: Weight 99.79 kg Results CBC & Chem 7: 09/26/24 10:55 09/26/24 10:55 Labs: Abnormal Lab Results - Last 24 Hours (Table) 09/26/24 09/26/24 09/26/24 Range/Units 10:35 10:35 10:55 RBC 6.04 H (4.30-5.90) m/uL Glucose (74-99) mg/dL AST (17-59) U/L Total Protein (6.3-8.2) g/dL Albumin (3.5-5.0) g/dL Ur Specific Fleming 1.039 H (1.001-1.035) Urine Protein 1+ H (Negative) Urine Ketones 2+ H (Negative) Urine Bilirubin 1+ H (Negative) Urine RBC 7 H (0-5) /hpf Hyaline Casts 4 H (0-2) /lpf Urine Mucus Many H (None) /hpf U Benzodiazepines Scrn Detected H (NotDetected) Urine Cocaine Screen Detected H (NotDetected) U Marijuana (THC) Screen Detected H (NotDetected) 09/26/24 Range/Units 10:55 RBC (4.30-5.90) m/uL Glucose 111 H (74-99) mg/dL AST 75 H (17-59) U/L Total Protein 9.2 H (6.3-8.2) g/dL Albumin 5.5 H (3.5-5.0) g/dL Ur Specific Fleming (1.001-1.035) Urine Protein (Negative) Urine Ketones (Negative) Urine Bilirubin (Negative) Urine RBC (0-5) /hpf Hyaline Casts (0-2) /lpf Urine Mucus (None) /hpf U Benzodiazepines Scrn (NotDetected) Urine Cocaine Screen (NotDetected) U Marijuana (THC) Screen (NotDetected)
== END 2024-09-27 10:40 | disposition home or self-care (01) ==
LOC: EC 09:35 → 6NMEDSUR 13:39
PROVIDERS: ADMIT Hospitalist; ATTEND Hospitalist
DX: F19.90 Other psychoactive substance use, unspecified, uncomplicated (principal); J44.9 Chronic obstructive pulmonary disease, unspecified; Z80.1 Family history of malignant neoplasm of trachea, bronchus and lung; Z71.51 Drug abuse counseling and surveillance of drug abuser; F17.210 Nicotine dependence, cigarettes, uncomplicated
CPT/HCPCS: 96376; 82075; 96372; 96374; 99285; 36415; 80053; 85025; 81001; 80306; 80320; 70450; G0378 ×2; J2060; J3486